=== PATIENT | female | born 1950 | race Caucasian/White ===

== ENCOUNTER 2020-07-08 09:39 | Outpatient (REF) | payer OTHER, SELFPAY ==
--- NOTE | ~2020-07-08 | MM_ITS ---
EXAMINATION: MM SCREENING DIGITAL BREAST TOMOSYNTHESIS, BILATERAL CLINICAL INFORMATION: Screening. Asymptomatic. The lifetime risk of breast cancer based on the Tyrer-Cuzick Model is 6%. COMPARISON: Mammography: 06/13/2019, and multiple exams dating back to 03/16/2012 TECHNIQUE: Digital breast tomosynthesis is performed in both the craniocaudal and mediolateral oblique views along with computer-aided detection (CAD). Synthesized 2D images are generated from the tomosynthesis. FINDINGS: There are scattered areas of fibroglandular density (ACR BI-RADS breast composition Category b). Parenchymal pattern is similar to prior exams. There is no interval mass or architectural abnormality. No developing density. Again, there is small stable nodular asymmetry posterior 8:00 right breast similar to prior studies dating back to 2011. The axilla and skin contours are unremarkable. MM/MM tomosynthesis screening BI IMPRESSION: No significant changes from prior studies. ASSESSMENT: BI-RADS 2: Benign RECOMMENDATION: Routine annual mammography screening. This patient's information was entered into a reminder system with a target due date for their next mammogram.
== END 2020-07-08 09:40 | disposition home or self-care (01) ==
LOC: HO.MAMMO 09:39
PROVIDERS: PCP Internal Medicine; Visit Provider Internal Medicine
DX: Z12.31 Encounter for screening mammogram for malignant neoplasm of breast (principal)
CPT/HCPCS: 77063; 77067

== ENCOUNTER 2020-08-26 08:08 | Emergency (ER) | payer OTHER, SELFPAY ==
--- NOTE | ~2020-08-26 | CT_ITS ---
EXAMINATION: CT ABDOMEN AND PELVIS WITH CONTRAST CLINICAL INFORMATION: Epigastric pain. COMPARISON: None TECHNIQUE: Multidetector volumetric images were obtained from the superior aspect of the liver through the pubic symphysis following administration 85 mL of Omnipaque 350 intravenous contrast. Sagittal and coronal reformatted images were obtained on the technologist's workstation. Oral contrast: No This CT examination was performed using dose optimization techniques as appropriate, variously including the following: *Automated exposure control *Adjustment of mA and/or kV according to patient size (this includes techniques or standardized protocols for targeted exams where dose is matched to indication/reason for exam; i.e. extremities or head) *Use of iterative reconstruction technique DLP: 495 mGy-cm FINDINGS: LUNG BASES: The lung bases are clear. The heart size is normal. LIVER, GALLBLADDER, AND BILIARY TREE: The liver is normal in size, shape, and attenuation. No focal hepatic lesion or biliary ductal dilatation is present. The gallbladder is unremarkable with no evidence of radiopaque gallstones, gallbladder wall thickening, or obvious pericholecystic inflammatory changes. PANCREAS: Unremarkable. SPLEEN: Unremarkable. ADRENAL GLANDS: Unremarkable. KIDNEYS AND URETERS: The kidneys are normal in size, shape, and attenuation. No hydronephrosis, hydroureter, or calculi seen. No perinephric stranding. BLADDER: Unremarkable. GASTROINTESTINAL TRACT: The small and large bowel are unremarkable. Suspect appendicolith in the right pelvis with a low-lying cecum in the appendix ABDOMINAL WALL: Small umbilical hernia containing fat. LYMPH NODES: Normal. VASCULAR: Unremarkable. PELVIC VISCERA: The uterus is retroverted and appears unremarkable. The ovaries are unremarkable. OSSEOUS STRUCTURES: Unremarkable. CT/CT abdomen pelvis w con IMPRESSION: No acute intra-abdominal process seen. Mild constipation. Likely appendicolith in the right lobe pelvis.
[2020-08-26 08:37] VITALS: BP 116/52; PULSE 80; RESP 18; TEMP 36.8; O2SAT 99; BMI 26.4
--- NOTE | 2020-08-26 08:49 | ECG_ITS ---
Test Reason : AD PAIN Blood Pressure : / mmHG Vent. Rate : 075 BPM Atrial Rate : 075 BPM P-R Int : 154 ms QRS Dur : 066 ms QT Int : 392 ms P-R-T Axes : 039 059 049 degrees QTc Int : 437 ms Normal sinus rhythm Normal ECG No previous ECGs available Referred By: Monica Moreno Electronically Signed By:Adolfo Rodriguez
--- NOTE | 2020-08-26 08:50 | ED_ITS ---
HPI - Abdominal Pain General Chief Complaint: Abdominal Pain Stated Complaint: abd cramps Time Seen by Provider: 08/26/20 08:18 Source: patient Mode of arrival: ambulatory Limitations: no limitations History of Present Illness HPI narrative: Comes to emergency room complaining of epigastric pain and right lower quadrant pain. Patient states the pain woke her from her sleep around 01:00 this morning. Patient states she went to sleep with no pain. Patient reports 3 bowel movements with loose stool since 01:00. Patient states that the patient called her PCP this morning, she was instructed to come to the emergency room. At this time, patient is dull, epigastric, 5/5. Discomfort is constant, nonradiating. Patient denies chest pain, no shortness of breath MD elicited complaint: abdominal pain Related Data Previous Rx's Medication Instructions Recorded levofloxacin 500 mg PO DAILY #7 tab 08/26/20 metronidazole [Flagyl] 500 mg PO BID #14 tab 08/26/20 tramadol 50 mg PO BID PRN #10 tab 08/26/20 Allergies Allergy/AdvReac Type Severity Reaction Status Date / Time amoxicillin Allergy Intermediate Hives Verified 08/26/20 08:47 Review of Systems Review of Systems Constitutional : No Weight loss, No Fever, No Chills, No Night Sweats, No Fatigue, No Malaise ENT/Mouth : No Hearing loss, No Ear Pain, No Nasal Congestion, No Sinus Pain, No Hoarseness, No sore throat, No Rhinorrhea, No Swallowing Difficulty Eyes: No Eye Pain, No Swelling, No Redness, No Foreign Body, No Discharge, No Vision Changes Cardiovascular : No Chest Pain, No SOB, No Dyspnea on Exertion, No Orthopnea, No Edema, No Palpitations Respiratory : No Cough, No Sputum, No Wheezing, No Smoke Exposure, No Dyspnea Gastrointestinal : Complaining of mild nausea, no vomiting, 3 episodes of loose stools, epigastric pain, no hematemesis or melena. Genitourinary : no irregular bleeding, No Dysuria, No Urinary Frequency, No Hematuria, No Urinary Incontinence, No Urgency, No Flank Pain, No Urinary Flow Changes, No Hesitancy Musculoskeletal : No joint pain, No Myalgias, No Joint Swelling Skin : No Skin Lesions, No rash Neuro : No Weakness, No Numbness, No Paresthesias, No Loss of Consciousness, No Dizziness, No Headache Psych : No Anxiety/Panic, No Depression, No SI/HI/AH/VH, No Social Issues, Heme/Lymph: No Bruising, No Bleeding,No Lymphadenopathy Endocrine : No Polyuria, No Polydipsia, No Temperature Intolerance Physical Exam Vital Signs: Vital Signs: Last Vital Signs Temp 97.8 F 08/26/20 10:35 Pulse 86 08/26/20 14:00 Resp 18 08/26/20 14:00 BP 102/66 08/26/20 14:00 Pulse Ox 96 08/26/20 14:00 Body Mass Index 26.4 Appearance: Alert. Oriented X3. No acute distress. Eyes: Pupils equal, round and reactive to light. ENT: Pharynx normal. Neck: Normal inspection. Neck supple. No lymph nodes noted. No crepitus CVS: Normal heart rate and rhythm. Pulses normal. Normal S1 and S2 Respiratory: No respiratory distress. Breath sounds normal. No Wheezing. No rales Abdomen: Soft , mild discomfort to deep palpation over the epigastric area, negative Hyde sign, No rigidity. No distention. Into palpation over the right lower quadrant, no peritoneal signs Skin: Skin warm and dry. Normal skin color. Normal skin turgor. Extremities: No lower extremity edema. No lower extremity edema. No Lacerations. No Rash Neuro: Oriented X 3. No motor deficit. No sensory deficit. Moving all extermities. No slurred speech. Course Course Course Narrative: I discussed the labs and CT scan with the patient, although she had 3 small loose bowel movements this morning, patient states that she feels distended, constipated. I discussed with the patient that we will go ahead and try an enema. Patient states she had a bowel movement after the enema. However, patient states that the pressure in her abdomen improved, but she still feels like she got punched in the right lower quadrant I discussed the patient with Dr. Cooper, who will be coming to evaluate the patient. Dr. Cooper evaluated the patient in the ED. Patient will be started on p.o. antibiotics and will be discharged home. Patient was instructed that if she feels any worsening abdominal pain, any new symptoms, she needs to return to the emergency room. Patient was instructed to schedule an appointment with Dr. Cooper for follow-up. Patient agrees with plan MDM - Abdominal Pain Lab Data Result diagrams: 08/26/20 09:16 08/26/20 09:53 Labs: Lab Results 08/26/20 08/26/20 Range/Units 09:16 09:53 WBC 10.6 (4.8-10.8) X10*3/uL RBC 4.41 (4.20-5.50) X10*6/uL Hgb 13.6 (12.0-16.0) g/dl Hct 41.6 (37-47) % MCV 94.3 (80-98) fL MCH 30.8 (27.0-33.0) pg MCHC 32.7 (31.0-35.0) g/dl RDW 12.9 (11.0-16.0) % Plt Count 233 (160-400) X10*3/uL MPV 9.7 (9.4-12.3) fL Immature Gran % (Auto) 0.4 (0.0-0.4) % Neut % (Auto) 80.8 H (45-73) % Lymph % (Auto) 12.4 L (20-40) % Bulloch % (Auto) 5.3 (2-11) % Eos % (Auto) 0.8 (0-4) % Baso % (Auto) 0.3 (0-2) % Lymph # (Auto) 1.3 (1.2-4.9) X10*3/uL Bulloch # (Auto) 0.6 (0.1-1.2) X10*3/uL Eos # (Auto) 0.1 (0.0-0.4) X10*3/uL Baso # (Auto) 0.0 (0.0-0.2) X10*3/uL Abs Immat Gran (auto) 0.04 H (0.00-0.03) X10*3/uL Absolute Neuts (auto) 8.5 H (2.0-8.3) X10*3/uL Absolute Nucleated RBC 0.000 (0.0-0.012) X10*3/uL Nucleated RBC % (auto) 0.0 (0.0-0.2) /100WBC Sodium 141 (135-145) mmol/L Potassium 4.3 (3.3-5.1) mmol/L Chloride 105 (96-108) mmol/L Carbon Dioxide 26 (22-29) mmol/L Anion Gap 14 (12-20) BUN 14 (9-16) mg/dL Creatinine 0.55 (0.5-1.4) mg/dL Estim Creat Clear Calc 82.4 Estimated GFR > 60 Random Glucose 104 (60-115) mg/dL Calcium 8.4 (8.4-10.2) mg/dL Total Bilirubin 0.6 (0.0-1.0) mg/dL Direct Bilirubin 0.3 (0.0-0.5) mg/dL AST 27 (5-31) U/L ALT 31 (0-31) U/L Alkaline Phosphatase 72 (39-117) U/L Total Protein 6.5 (6.5-8.0) g/dL Albumin 3.9 (3.5-5.0) g/dL Lipase 8 (8-78) U/L Imaging Data CT scan - abdomen: Radiologist's impression: LUNG BASES: The lung bases are clear. The heart size is normal. LIVER, GALLBLADDER, AND BILIARY TREE: The liver is normal in size, shape, and attenuation. No focal hepatic lesion or biliary ductal dilatation is present. The gallbladder is unremarkable with no evidence of radiopaque gallstones, gallbladder wall thickening, or obvious pericholecystic inflammatory changes. PANCREAS: Unremarkable. SPLEEN: Unremarkable. ADRENAL GLANDS: Unremarkable. KIDNEYS AND URETERS: The kidneys are normal in size, shape, and attenuation. No hydronephrosis, hydroureter, or calculi seen. No perinephric stranding. BLADDER: Unremarkable. GASTROINTESTINAL TRACT: The small and large bowel are unremarkable. Suspect appendicolith in the right pelvis with a low-lying cecum in the appendix ABDOMINAL WALL: Small umbilical hernia containing fat. LYMPH NODES: Normal. VASCULAR: Unremarkable. PELVIC VISCERA: The uterus is retroverted and appears unremarkable. The ovaries are unremarkable. OSSEOUS STRUCTURES: Unremarkable. CT/CT abdomen pelvis w con IMPRESSION: No acute intra-abdominal process seen. Mild constipation. Likely appendicolith in the right lobe pelvis. ECG Data Attestation: I personally reviewed and interpreted this ECG as follows: (Normal sinus rhythm, heart rate 75, no ST segment depression or elevation, nonspecific T-wave inversion in lead V2) Discharge Plan Discharge Clinical Impression: Abdominal pain Qualifiers: Abdominal location: unspecified location Qualified Code(s): R10.9 - Unspecified abdominal pain Patient Disposition: Home, Self-Care Instructions: Abdominal Pain (ED) Additional Instructions: If you have any worsening abdominal pain or any new symptoms, please return to the emergency room. Your symptoms may be an early sign of appendicitis. Please call Dr. Cooper office to schedule a follow-up appointment, ideally before you travel to [place]. Please follow-up with your primary care physician tomorrow. If you have any worsening or new symptoms, please return to the emergency room or call 911 Prescriptions: New levofloxacin 500 mg tablet 500 mg PO DAILY Qty: 7 RF: 0 metronidazole [Flagyl] 500 mg tablet 500 mg PO BID Qty: 14 RF: 0 tramadol 50 mg tablet 50 mg PO BID PRN (Reason: pain) Qty: 10 RF: 0 Referrals: Shaan Cooper MD [Physician] - [facility] Social History Social History Advance Directives: No Advance Directives Information Provided: No
[2020-08-26 09:20] LABS: MANUAL DIFF FLAG NO
[2020-08-26 09:23] LABS: Basophils Percent Auto 0.3 % (0-2); Eosinophils Absolute Auto 0.1 X10*3/uL (0.0-0.4); Eosinophils Percent Auto 0.8 % (0-4); Hematocrit 41.6 % (37-47); Hemoglobin 13.6 g/dl (12.0-16.0); Imm Gran Abs Auto 0.04 X10*3/uL (0.00-0.03); Imm Gran Pct Auto 0.4 % (0.0-0.4); Lymphocytes Absolute Auto 1.3 X10*3/uL (1.2-4.9); Lymphocytes Percent Auto 12.4 % (20-40); Mean Corpuscular HGB Conc 32.7 g/dl (31.0-35.0); Mean Corpuscular Hemoglobin 30.8 pg (27.0-33.0); Mean Corpuscular Volume 94.3 fL (80-98); Mean Platelet Volume 9.7 fL (9.4-12.3); Monocytes Absolute Auto 0.6 X10*3/uL (0.1-1.2); Monocytes Percent Auto 5.3 % (2-11); Neutrophils Absolute Auto 8.5 X10*3/uL (2.0-8.3); Neutrophils Percent Auto 80.8 % (45-73); Platelet Count 233 X10*3/uL (160-400); Red Blood Count 4.41 X10*6/uL (4.20-5.50); Red Cell Distribution Width 12.9 % (11.0-16.0); White Blood Count 10.6 X10*3/uL (4.8-10.8)
[2020-08-26] MEDS: 0.9 % Sodium Chloride 1,000 ML 999 ML IVCONT (09:24)
[2020-08-26 10:24] LABS: Alanine Aminotransferase 31 U/L (0-31); Albumin Level 3.9 g/dL (3.5-5.0); Alkaline Phosphatase 72 U/L (39-117); Anion Gap 14 (12-20); Aspartate Amino Transferase 27 U/L (5-31); Bilirubin Direct 0.3 mg/dL (0.0-0.5); Bilirubin Total 0.6 mg/dL (0.0-1.0); Blood Urea Nitrogen 14 mg/dL (9-16); Calcium 8.4 mg/dL (8.4-10.2); Carbon Dioxide 26 mmol/L (22-29); Chloride 105 mmol/L (96-108); Creatinine Clr Calc Pharmacy 82.4; Estimated Glomerular Filt Rate > 60; Glucose Random 104 mg/dL (60-115); Lipase 8 U/L (8-78); Potassium 4.3 mmol/L (3.3-5.1); Sodium 141 mmol/L (135-145); Total Protein 6.5 g/dL (6.5-8.0)
--- NOTE | 2020-08-26 10:32 | PC.NURSE ---
Patient heading to CT scan
[2020-08-26 10:35] VITALS: BP 133/70; PULSE 87; RESP 16; TEMP 36.6; O2SAT 98
[2020-08-26] MEDS: iohexoL 350 MG/ML 75 ML INFUS..BTL IV (11:07)
[2020-08-26 12:00] VITALS: BP 133/70; PULSE 87; O2SAT 98
[2020-08-26] MEDS: Sodium Phosphate,Mono-Dibasic 133 ML ENEMA PR (13:57)
[2020-08-26 14:00] VITALS: BP 102/66; PULSE 86; RESP 18; O2SAT 96
--- NOTE | 2020-08-26 15:45 | PM.CNGS ---
History of Present Illness Consult details Consult date: 08/26/20 Narrative: 70-year-old female patient presenting to the emergency department for evaluation of abdominal pain which began at approximately 01:00 this morning, waking her up from sleep. The pain was initially in the epigastric region then felt in they bilateral lower abdomen. She felt that she was constipated and has subsequently had 3 bowel movements which did improve the pain to some degree but however she still feels some discomfort in the lower abdomen. She denied fever or chills, nausea, vomiting, or anorexia. She denies pain with motion/walking. She denies a previous history of similar discomfort. She subsequently presented to the emergency department and underwent evaluation for acute appendicitis. WBC was normal. CT of the abdomen revealed a fecalith at the appendix however no evidence of appendix swelling or inflammation to indicate acute appendicitis. She is planning a trip to [place], [place] in approximately 5 days. Review of Systems Constitutional: Constitutional: Denies chills, Denies fever(s), Denies headache(s) and Denies poor appetite ENT: Denies dizziness and Denies headache(s) Cardiovascular: Cardiovascular: Denies chest pain, Denies rapid heart rate, Denies palpitations and Denies slow heart rate Respiratory: Respiratory: Denies chest congestion, Denies cough, Denies pain on inspiration and Denies wheezing Gastrointestinal: Gastrointestinal: Reports abdominal pain, Denies bloating, Denies change in stool character, Reports constipation, Denies diarrhea, Denies nausea, Denies vomiting and Denies hematemesis Musculoskeletal: Musculoskeletal: Denies back pain, Denies arthralgias, Denies joint swelling and Denies numbness Integumentary/Breasts: Skin/Breast: Denies change in pigmentation, Denies erythema and Denies rash Neurologic: Denies dizziness, Denies headache(s) and Denies numbness Psychiatric: Psychiatric: Denies anxiety and Denies depression Endocrine: Endocrine: Denies palpitations Hematologic/Lymphatic: Hematologic/Lymphatic: Denies easy bleeding, Denies easy bruising and Denies lymphadenopathy Allergic/Immunologic: Allergic/Immunologic: Denies wheezing PMFSH Social History Social History Advance Directives: No Advance Directives Information Provided: No Meds Allergies Allergy/AdvReac Type Severity Reaction Status Date / Time amoxicillin Allergy Intermediate Hives Verified 08/26/20 08:47 Physical Exam Vital Signs: Vital Signs: Last Vital Signs Temp 97.8 F 08/26/20 10:35 Pulse 86 08/26/20 14:00 Resp 18 08/26/20 14:00 BP 102/66 08/26/20 14:00 Pulse Ox 96 08/26/20 14:00 Body Mass Index 26.4 Const: General: cooperative, comfortable, no acute distress, well developed, alert, awake and Physically active Eyes: Sclerae: sclerae normal EOM: EOMs intact bilaterally Resp: Effort & Inspection: normal respiratory effort, not labored, no stridor and not tachypneic Auscultation: no wheezes Cardio: Jugular venous distension: no JVD Rate: regular rate Rhythm: regular rhythm GI: Inspection: Yes normal to inspection and No distended Palpation (GI): Soft to palpation and Tenderness to palpation present (GI) in the LLQ and in the RLQ; obturator sign negative, psoas sign negative and with no rebound tenderness Percussion: Yes normal to percussion Auscultation: normal bowel sounds Skin: General skin exam: no rashes or lesions noted and dry skin Extrem: General: Yes no clubbing, cyanosis or edema Results Labs Result diagrams: 08/26/20 09:16 08/26/20 09:53 Labs: Abnormal lab results 08/26/20 Range/Units 09:16 Neut % (Auto) 80.8 H (45-73) % Lymph % (Auto) 12.4 L (20-40) % Abs Immat Gran (auto) 0.04 H (0.00-0.03) X10*3/uL Absolute Neuts (auto) 8.5 H (2.0-8.3) X10*3/uL Short CBC 08/26/20 Range/Units 09:16 WBC 10.6 (4.8-10.8) X10*3/uL Hgb 13.6 (12.0-16.0) g/dl Hct 41.6 (37-47) % Plt Count 233 (160-400) X10*3/uL BMP 08/26/20 09:53 Sodium 141 Potassium 4.3 Chloride 105 Carbon Dioxide 26 BUN 14 Creatinine 0.55 Calcium 8.4 Liver Function 08/26/20 Range/Units 09:53 Total Bilirubin 0.6 (0.0-1.0) mg/dL Direct Bilirubin 0.3 (0.0-0.5) mg/dL AST 27 (5-31) U/L ALT 31 (0-31) U/L Alkaline Phosphatase 72 (39-117) U/L Albumin 3.9 (3.5-5.0) g/dL All other labs normal. Assessment and Plan (1) Abdominal pain: Qualifiers: Abdominal location: unspecified location Qualified Code(s): R10.9 - Unspecified abdominal pain Status: Acute Patient presents with complaints of abdominal pain in the lower abdomen without fever, chills, nausea, vomiting, or anorexia. Workup revealed a normal WBC and CT of the abdomen reveals a fecalith associated with the appendix. The patient also reports a constipation which is improved after an enema provided in the emergency department. Symptoms may be related to the appendix although there are no other secondary signs of appendicitis. I would recommend start her on oral antibiotics at with follow-up in the office in the next several days to assess her symptoms. If her symptoms do not improve 1 option would be elective laparoscopic appendectomy. Patient expressed understanding and agrees with the plan.
[2020-08-26] MEDS: levoFLOXacin 500 MG TABLET PO (15:52)
[2020-08-26] MEDS: metroNIDAZOLE 500 MG TABLET PO (15:53)
== END 2020-08-26 16:02 | disposition home or self-care (01) ==
PROVIDERS: Emergency Provider Emergency Medicine; PCP Internal Medicine
DX: R10.31 Right lower quadrant pain (principal); R10.13 Epigastric pain; Z79.899 Other long term (current) drug therapy
CPT/HCPCS: 36415; 74177; 80048; 80076; 83690; 85025; 93005; 96361; 96365; 96375; 99283; 99284; Q9967

== ENCOUNTER 2020-08-28 15:14 | Inpatient (IN) | payer OTHER, SELFPAY ==
--- NOTE | ~2020-08-28 | CT_ITS ---
EXAMINATION: CT ABDOMEN AND PELVIS WITH CONTRAST CLINICAL INFORMATION: Worsening pain since prior study. An appendicolith was seen at that time. COMPARISON: CT scan from a few days ago on 08/26/2020 TECHNIQUE: Multidetector volumetric images were obtained from the superior aspect of the liver through the pubic symphysis following administration 85 mL of Omnipaque 350 intravenous contrast. Sagittal and coronal reformatted images were obtained on the technologist's workstation. Oral contrast: No This CT examination was performed using dose optimization techniques as appropriate, variously including the following: *Automated exposure control *Adjustment of mA and/or kV according to patient size (this includes techniques or standardized protocols for targeted exams where dose is matched to indication/reason for exam; i.e. extremities or head) *Use of iterative reconstruction technique DLP: 526 mGy-cm FINDINGS: LUNG BASES: The visualized lung bases are unremarkable. A tiny pericardial effusion is unchanged. LIVER, GALLBLADDER, AND BILIARY TREE: The liver is normal in size, shape, and attenuation. No focal hepatic lesion or biliary ductal dilatation is present. The gallbladder is unremarkable with no evidence of radiopaque gallstones, gallbladder wall thickening, or obvious pericholecystic inflammatory changes. PANCREAS: Unremarkable. SPLEEN: Unremarkable. ADRENAL GLANDS: Unremarkable. KIDNEYS AND URETERS: The kidneys are normal in size, shape, and attenuation. No hydronephrosis, hydroureter, or calculi seen. No perinephric stranding. BLADDER: Unremarkable. GASTROINTESTINAL TRACT: The small and large bowel are unremarkable. The appendix is now an equivocally dilated with an appendicolith proximally causing obstruction. The diameter of the appendix is 12 mm. Inflammatory changes are present in the surrounding fat and there is a small fluid collection dependent portion of the pelvis on the right adjacent to the appendix. No extraluminal air is seen.. ABDOMINAL WALL: No significant hernia is appreciated. LYMPH NODES: Normal. VASCULAR: Unremarkable. PELVIC VISCERA: Again noted is a retroverted uterus. OSSEOUS STRUCTURES: Unremarkable. CT/CT abdomen pelvis w con IMPRESSION: Acute appendicitis with dilated 12 mm appendix with surrounding inflammatory changes within obstructing appendicolith and fluid collection in the pelvis. No extraluminal air is seen. This critical result was discussed with Dr. Moreno at 7:15 PM on the day of the exam and it was ascertained that the content and urgency of the report was understood at the time of direct communication.
[2020-08-28 15:21] VITALS: BP 115/58; PULSE 93; RESP 19; TEMP 37.4; O2SAT 95; BMI 26.4
--- NOTE | 2020-08-28 17:19 | ED.ABDPAIN ---
HPI - Abdominal Pain General Chief Complaint: Abdominal Pain Stated Complaint: ABD PAIN Time Seen by Provider: 08/28/20 17:11 Source: patient Mode of arrival: ambulatory Limitations: no limitations History of Present Illness HPI narrative: Patient comes emergency room complaining of worsening abdominal pain. It has been almost 4 days since the patient has had abdominal pain. Patient was seen 2 days ago here in the emergency room for the same complaint, CT scan showed an appendicolith with no signs of acute appendicitis. Prior to her discharge, patient was evaluated by Dr. Cooper and by myself. Patient was informed that although she had no acute findings of appendicitis, she could be developing early signs of appendicitis and was instructed to return to the emergency room if she had any ongoing or worsening symptoms. Patient was also informed that if her symptoms do not improve, elective laparoscopic appendectomy is an option. Patient agreed to be discharged home, she has been taking Flagyl and levofloxacin, states she has been compliant. Patient has been having diarrhea for the last 2 days. No nausea or vomiting, no fever chills. MD elicited complaint: abdominal pain Related Data Previous Rx's Medication Instructions Recorded levofloxacin 500 mg PO DAILY #7 tab 08/26/20 levofloxacin 500 mg PO DAILY #7 tab 08/26/20 metronidazole [Flagyl] 500 mg PO BID #14 tab 08/26/20 metronidazole [Flagyl] 500 mg PO Q12H #14 tab 08/26/20 tramadol 50 mg PO BID PRN #10 tab 08/26/20 tramadol 50 mg PO BID PRN #10 tab 08/26/20 Allergies Allergy/AdvReac Type Severity Reaction Status Date / Time amoxicillin Allergy Intermediate Hives Verified 08/26/20 08:47 Review of Systems Review of Systems Constitutional : No Weight loss, No Fever, No Chills, No Night Sweats, No Fatigue, No Malaise ENT/Mouth : No Hearing loss, No Ear Pain, No Nasal Congestion, No Sinus Pain, No Hoarseness, No sore throat, No Rhinorrhea, No Swallowing Difficulty Eyes: No Eye Pain, No Swelling, No Redness, No Foreign Body, No Discharge, No Vision Changes Cardiovascular : No Chest Pain, No SOB, No Dyspnea on Exertion, No Orthopnea, No Edema, No Palpitations Respiratory : No Cough, No Sputum, No Wheezing, No Smoke Exposure, No Dyspnea Gastrointestinal : No Nausea, No Vomiting, complaining of diarrhea, no constipation, complaining of right lower quadrant pain Genitourinary : no irregular bleeding, No Dysuria, No Urinary Frequency, No Hematuria, No Urinary Incontinence, No Urgency, No Flank Pain, No Urinary Flow Changes, No Hesitancy Musculoskeletal : No joint pain, No Myalgias, No Joint Swelling Skin : No Skin Lesions, No rash Neuro : No Weakness, No Numbness, No Paresthesias, No Loss of Consciousness, No Dizziness, No Headache Psych : No Anxiety/Panic, No Depression, No SI/HI/AH/VH, No Social Issues, Heme/Lymph: No Bruising, No Bleeding,No Lymphadenopathy Endocrine : No Polyuria, No Polydipsia, No Temperature Intolerance Physical Exam Vital Signs: Vital Signs: Last Vital Signs Temp 98.1 F 08/28/20 18:00 Pulse 91 08/28/20 18:00 Resp 18 08/28/20 18:01 BP 124/77 08/28/20 18:00 Pulse Ox 99 08/28/20 18:00 Body Mass Index 26.4 Appearance: Alert. Oriented X3. No acute distress. Eyes: Pupils equal, round and reactive to light. ENT: Pharynx normal. Neck: Normal inspection. Neck supple. No lymph nodes noted. No crepitus CVS: Normal heart rate and rhythm. Pulses normal. Normal S1 and S2 Respiratory: No respiratory distress. Breath sounds normal. No Wheezing. No rales Abdomen: Soft , tender to palpation worse in bilateral lower quadrants, more tender on the right lower quadrant, positive rebound, no guarding, negative Hyde sign Skin: Skin warm and dry. Normal skin color. Normal skin turgor. Extremities: No lower extremity edema. No lower extremity edema. No Lacerations. No Rash Neuro: Oriented X 3. No motor deficit. No sensory deficit. Moving all extermities. No slurred speech. Course Course Course Narrative: Patient has acute appendicitis without perforation. Sepsis is not suspected. I discussed the patient with Dr. Cooper. Patient will be going to the OR tomorrow MDM - Abdominal Pain Lab Data Result diagrams: 08/28/20 17:55 08/28/20 17:55 Labs: Lab Results 08/28/20 08/28/20 08/28/20 Range/Units 17:55 17:55 17:55 WBC 15.4 H (4.8-10.8) X10*3/uL RBC 4.08 L (4.20-5.50) X10*6/uL Hgb 12.4 (12.0-16.0) g/dl Hct 38.2 (37-47) % MCV 93.6 (80-98) fL MCH 30.4 (27.0-33.0) pg MCHC 32.5 (31.0-35.0) g/dl RDW 13.1 (11.0-16.0) % Plt Count 189 (160-400) X10*3/uL MPV 9.9 (9.4-12.3) fL Immature Gran % (Auto) 0.5 H (0.0-0.4) % Neut % (Auto) 83.1 H (45-73) % Lymph % (Auto) 9.8 L (20-40) % [place] % (Auto) 6.2 (2-11) % Eos % (Auto) 0.2 (0-4) % Baso % (Auto) 0.2 (0-2) % Lymph # (Auto) 1.5 (1.2-4.9) X10*3/uL [place] # (Auto) 1.0 (0.1-1.2) X10*3/uL Eos # (Auto) 0.0 (0.0-0.4) X10*3/uL Baso # (Auto) 0.0 (0.0-0.2) X10*3/uL Abs Immat Gran (auto) 0.07 H (0.00-0.03) X10*3/uL Absolute Neuts (auto) 12.8 H (2.0-8.3) X10*3/uL Absolute Nucleated RBC 0.000 (0.0-0.012) X10*3/uL Nucleated RBC % (auto) 0.0 (0.0-0.2) /100WBC Sodium 137 (135-145) mmol/L Potassium 3.6 (3.3-5.1) mmol/L Chloride 99 (96-108) mmol/L Carbon Dioxide 30 H (22-29) mmol/L Anion Gap 12 (12-20) BUN 10 (9-16) mg/dL Creatinine 0.59 (0.5-1.4) mg/dL Estim Creat Clear Calc 76.8 Estimated GFR > 60 Random Glucose 95 (60-115) mg/dL Lactic Acid 0.9 (0.5-2.0) mmol/L Calcium 8.6 (8.4-10.2) mg/dL Total Bilirubin 0.7 (0.0-1.0) mg/dL Direct Bilirubin 0.4 (0.0-0.5) mg/dL AST 54 H (5-31) U/L ALT 56 H (0-31) U/L Alkaline Phosphatase 82 (39-117) U/L Total Protein 6.6 (6.5-8.0) g/dL Albumin 3.7 (3.5-5.0) g/dL Lipase < 4 L (8-78) U/L Urine Color Urine Appearance Urine pH (5.0-8.0) Ur Specific [place] (1.005-1.025) Urine Protein (NEG-TRACE) MG/DL Urine Glucose (UA) (NEG) MG/DL Urine Ketones (NEG) MG/DL Urine Blood (NEG) Urine Nitrite (NEG) Ur Leukocyte Esterase (NEG) 08/28/20 Range/Units 19:26 WBC (4.8-10.8) X10*3/uL RBC (4.20-5.50) X10*6/uL Hgb (12.0-16.0) g/dl Hct (37-47) % MCV (80-98) fL MCH (27.0-33.0) pg MCHC (31.0-35.0) g/dl RDW (11.0-16.0) % Plt Count (160-400) X10*3/uL MPV (9.4-12.3) fL Immature Gran % (Auto) (0.0-0.4) % Neut % (Auto) (45-73) % Lymph % (Auto) (20-40) % [place] % (Auto) (2-11) % Eos % (Auto) (0-4) % Baso % (Auto) (0-2) % Lymph # (Auto) (1.2-4.9) X10*3/uL [place] # (Auto) (0.1-1.2) X10*3/uL Eos # (Auto) (0.0-0.4) X10*3/uL Baso # (Auto) (0.0-0.2) X10*3/uL Abs Immat Gran (auto) (0.00-0.03) X10*3/uL Absolute Neuts (auto) (2.0-8.3) X10*3/uL Absolute Nucleated RBC (0.0-0.012) X10*3/uL Nucleated RBC % (auto) (0.0-0.2) /100WBC Sodium (135-145) mmol/L Potassium (3.3-5.1) mmol/L Chloride (96-108) mmol/L Carbon Dioxide (22-29) mmol/L Anion Gap (12-20) BUN (9-16) mg/dL Creatinine (0.5-1.4) mg/dL Estim Creat Clear Calc Estimated GFR Random Glucose (60-115) mg/dL Lactic Acid (0.5-2.0) mmol/L Calcium (8.4-10.2) mg/dL Total Bilirubin (0.0-1.0) mg/dL Direct Bilirubin (0.0-0.5) mg/dL AST (5-31) U/L ALT (0-31) U/L Alkaline Phosphatase (39-117) U/L Total Protein (6.5-8.0) g/dL Albumin (3.5-5.0) g/dL Lipase (8-78) U/L Urine Color YELLOW Urine Appearance CLEAR Urine pH 6.5 (5.0-8.0) Ur Specific [place] <= 1.005 (1.005-1.025) Urine Protein NEG (NEG-TRACE) MG/DL Urine Glucose (UA) NEG (NEG) MG/DL Urine Ketones 15 (NEG) MG/DL Urine Blood TRACE (NEG) Urine Nitrite NEG (NEG) Ur Leukocyte Esterase NEG (NEG) Imaging Data CT scan - abdomen: Radiologist's impression: FINDINGS: LUNG BASES: The visualized lung bases are unremarkable. A tiny pericardial effusion is unchanged. LIVER, GALLBLADDER, AND BILIARY TREE: The liver is normal in size, shape, and attenuation. No focal hepatic lesion or biliary ductal dilatation is present. The gallbladder is unremarkable with no evidence of radiopaque gallstones, gallbladder wall thickening, or obvious pericholecystic inflammatory changes. PANCREAS: Unremarkable. SPLEEN: Unremarkable. ADRENAL GLANDS: Unremarkable. KIDNEYS AND URETERS: The kidneys are normal in size, shape, and attenuation. No hydronephrosis, hydroureter, or calculi seen. No perinephric stranding. BLADDER: Unremarkable. GASTROINTESTINAL TRACT: The small and large bowel are unremarkable. The appendix is now an equivocally dilated with an appendicolith proximally causing obstruction. The diameter of the appendix is 12 mm. Inflammatory changes are present in the surrounding fat and there is a small fluid collection dependent portion of the pelvis on the right adjacent to the appendix. No extraluminal air is seen.. ABDOMINAL WALL: No significant hernia is appreciated. LYMPH NODES: Normal. VASCULAR: Unremarkable. PELVIC VISCERA: Again noted is a retroverted uterus. OSSEOUS STRUCTURES: Unremarkable. CT/CT abdomen pelvis w con IMPRESSION: Acute appendicitis with dilated 12 mm appendix with surrounding inflammatory changes within obstructing appendicolith and fluid collection in the pelvis. No extraluminal air is seen. ECG Data Attestation: I personally reviewed and interpreted this ECG as follows: (Sinus rhythm, heart rate 88, no ST segment depression or elevation, no T-wave inversion) Discharge Plan Discharge Clinical Impression: Acute appendicitis Qualifiers: Acute appendicitis type: with localized peritonitis Appendicitis gangrene presence: without gangrene Appendicitis perforation presence: without perforation Appendicitis abscess presence: without abscess Qualified Code(s): K35.30 - Acute appendicitis with localized peritonitis, without perforation or gangrene Patient Disposition: Admitted As Inpatient FOR[facility]LY [facility] Past Medical History Medical History No active medical problems Social History Social History Advance Directives: No Advance Directives Information Provided: No
--- NOTE | 2020-08-28 17:20 | ECG_ITS ---
Test Reason : MEDICAL Blood Pressure : / mmHG Vent. Rate : 088 BPM Atrial Rate : 088 BPM P-R Int : 160 ms QRS Dur : 068 ms QT Int : 362 ms P-R-T Axes : 066 064 046 degrees QTc Int : 438 ms Normal sinus rhythm Normal ECG When compared with ECG of 26-AUG-2020 09:05, No significant change was found Referred By: Monica Moreno Electronically Signed By:PING VALDES MD
[2020-08-28 18:00] VITALS: BP 124/77; PULSE 91; RESP 16; TEMP 36.7; O2SAT 99
[2020-08-28 18:01] VITALS: RESP 18
[2020-08-28] MEDS: Metoclopramide HCl 10 MG/2 ML VIAL IVPUSH (18:01)
[2020-08-28] MEDS: Morphine Sulfate 4 MG/ML CARTRIDGE IVPUSH (18:01)
[2020-08-28] MEDS: 0.9 % Sodium Chloride 1,000 ML 999 ML IVCONT (18:01)
[2020-08-28 18:02] LABS: MANUAL DIFF FLAG NO
[2020-08-28 18:04] LABS: Basophils Percent Auto 0.2 % (0-2); Eosinophils Percent Auto 0.2 % (0-4); Hematocrit 38.2 % (37-47); Hemoglobin 12.4 g/dl (12.0-16.0); Imm Gran Abs Auto 0.07 X10*3/uL (0.00-0.03); Imm Gran Pct Auto 0.5 % (0.0-0.4); Lymphocytes Absolute Auto 1.5 X10*3/uL (1.2-4.9); Lymphocytes Percent Auto 9.8 % (20-40); Mean Corpuscular HGB Conc 32.5 g/dl (31.0-35.0); Mean Corpuscular Hemoglobin 30.4 pg (27.0-33.0); Mean Corpuscular Volume 93.6 fL (80-98); Mean Platelet Volume 9.9 fL (9.4-12.3); Monocytes Percent Auto 6.2 % (2-11); Neutrophils Absolute Auto 12.8 X10*3/uL (2.0-8.3); Neutrophils Percent Auto 83.1 % (45-73); Platelet Count 189 X10*3/uL (160-400); Red Blood Count 4.08 X10*6/uL (4.20-5.50); Red Cell Distribution Width 13.1 % (11.0-16.0); White Blood Count 15.4 X10*3/uL (4.8-10.8)
[2020-08-28 18:28] LABS: Lactic Acid 0.9 mmol/L (0.5-2.0)
[2020-08-28 18:36] LABS: Alanine Aminotransferase 56 U/L (0-31); Albumin Level 3.7 g/dL (3.5-5.0); Alkaline Phosphatase 82 U/L (39-117); Anion Gap 12 (12-20); Aspartate Amino Transferase 54 U/L (5-31); Bilirubin Direct 0.4 mg/dL (0.0-0.5); Bilirubin Total 0.7 mg/dL (0.0-1.0); Blood Urea Nitrogen 10 mg/dL (9-16); Calcium 8.6 mg/dL (8.4-10.2); Carbon Dioxide 30 mmol/L (22-29); Chloride 99 mmol/L (96-108); Creatinine Clr Calc Pharmacy 76.8; Estimated Glomerular Filt Rate > 60; Glucose Random 95 mg/dL (60-115); Lipase < 4 U/L (8-78); Potassium 3.6 mmol/L (3.3-5.1); Sodium 137 mmol/L (135-145); Total Protein 6.6 g/dL (6.5-8.0)
[2020-08-28 19:34] LABS: Glucose Urine UA NEG (NEG); Leukocyte Esterase Urine NEG (NEG); Nitrite Urine NEG (NEG); PH 6.5 (5.0-8.0); Specific Gravity - Urine <= 1.005 (1.005-1.025); Urine Blood TRACE (NEG); Urine Ketones 15 MG/DL (NEG); Urine Protein NEG (NEG-TRACE)
[2020-08-28 19:35] LABS: Appearance Urine CLEAR; Color Urine YELLOW
[2020-08-28] MEDS: levoFLOXacin/D5W 500 MG/100 ML PIGGYBACK 100 MG IV (19:36)
[2020-08-28 19:41] LABS: Bacteria Urine TRACE /LPF; RBC Urine 0-2 /HPF (0); Squamous Epithelial Cell Urine TRACE /LPF; WBC Urine 0 /HPF (0-4)
[2020-08-28 20:15] LABS: COVID-19 Test Negative (Negative); IDNOW Serial# 9DD0AD1C
[2020-08-28 21:02] VITALS: BP 128/65; PULSE 100; RESP 16; TEMP 37.2; O2SAT 96
[2020-08-28] MEDS: metroNIDAZOLE/NS 500 MG/100 ML PIGGYBACK 100 MG IV (21:47)
[2020-08-28 22:00] VITALS: BP 122/70; PULSE 89; RESP 16; TEMP 37.3; O2SAT 99
[2020-08-28] MEDS: Acetaminophen 325 MG TABLET 650 MG PO (22:28)
--- NOTE | 2020-08-28 22:33 | MHC.CM.PN ---
CM met with pt and . insurance-no IMM required. Pt does not use [facility] services. Pt spent 20 years in [employer]. Lives with . Has no services. Uses no medical equipment. D/C plan is home without services. to provide transportation. No HCP on file. CM to follow for d/c needs.
[2020-08-29] VITALS (18 sets, daily range): BP systolic 101–139; BP diastolic 38–81; PULSE 79–110; RESP 14–20; TEMP 35.8–37.8; O2SAT 94–99
[2020-08-29] MEDS: 0.9 % Sodium Chloride Flush 3 ML SYRINGE IVFLUSH ×3 (00:55→18:34)
[2020-08-29] MEDS: Dextrose 5 % and Lactated Ring 1,000 ML 125 ML IVCONT ×3 (00:55→18:27)
--- NOTE | 2020-08-29 01:11 | PC.NURSE ---
REPORT TAKEN FROM XIMENA LITTLE, FIRST CONTACT WITH PT, RESTING IN BED SKIN PWD RESPIRATIONS EVEN UNLABORED. REPORTS SWEATS YET AFEBRILE. VSS. IVF HUNG AND INFUSING WITHOUT DIFFICULTY. AWAITING BED ASSIGNMENT FOR ADMISSION.
[2020-08-29] MEDS: metroNIDAZOLE/NS 500 MG/100 ML PIGGYBACK 100 MG IV ×2 (05:31→16:03)
--- NOTE | 2020-08-29 05:59 | PM.HPGS ---
History of Present Illness History of Present Illness Date of Service: 08/29/20 Chief complaint: Acute appendicitis Narrative: Jigna Solorzano is a 70 year old female presenting with complaints of lower abdominal pain Review of Systems Constitutional: Constitutional: Denies chills, Denies fever(s), Denies headache(s) and Denies poor appetite ENT: Denies dizziness and Denies headache(s) Cardiovascular: Cardiovascular: Denies chest pain, Denies rapid heart rate, Denies palpitations and Denies slow heart rate Respiratory: Respiratory: Denies chest congestion, Denies cough, Denies pain on inspiration and Denies wheezing Gastrointestinal: Gastrointestinal: Reports abdominal pain, Denies bloating, Denies change in stool character, Reports constipation, Denies diarrhea, Denies nausea, Denies vomiting and Denies hematemesis Musculoskeletal: Musculoskeletal: Denies back pain, Denies arthralgias, Denies joint swelling and Denies numbness Integumentary/Breasts: Skin/Breast: Denies change in pigmentation, Denies erythema and Denies rash Neurologic: Denies dizziness, Denies headache(s) and Denies numbness Psychiatric: Psychiatric: Denies anxiety and Denies depression Endocrine: Endocrine: Denies palpitations Hematologic/Lymphatic: Hematologic/Lymphatic: Denies easy bleeding, Denies easy bruising and Denies lymphadenopathy Allergic/Immunologic: Allergic/Immunologic: Denies wheezing PMFSH Past Medical History Medical History (Updated 08/29/20 @ 11:21 by Coco Jones RN) Asthma Bunion of great toe of left foot Carpal tunnel syndrome of right wrist Cataract Social History Social History Alcohol intake: never Smoking Status: Never smoker Use of substances other than those prescribed or required for medical reasons: No Advance Directives: No Advance Directives Information Provided: No service: Yes Current occupational status: retired Meds Allergies Allergy/AdvReac Type Severity Reaction Status Date / Time amoxicillin Allergy Intermediate Hives Verified 08/26/20 08:47 Active Medications: Current Medications Generic Name Dose Route Start Last Admin Trade Name Freq PRN Reason Stop Dose Admin Acetaminophen 650 mg 08/28/20 22:24 08/28/20 22:28 Acetaminophen 325 Mg Tablet PO 650 mg Q6H PRN Administration Pain, Mild (Pain Scale 1-3) Dextrose/Lactated Ringer's 1,000 mls @ 125 mls/hr 08/28/20 22:24 08/29/20 00:55 D5lr IVCONT 125 mls/hr .Q8H THEODORE Administration Levofloxacin 500 mg in 100 mls @ 100 mls/hr 08/29/20 19:00 Levaquin IV Q24H THEODORE Metronidazole 500 mg in 100 mls @ 100 mls/hr 08/29/20 04:00 08/29/20 05:31 Flagyl IV 100 mls/hr Q6H THEODORE Administration Morphine Sulfate 4 mg 08/28/20 22:24 Morphine Sulfate 4 Mg/Ml Cartridge IVPUSH Q3H PRN Pain, Severe (Pain Scale 7-10) Ondansetron HCl 4 mg 08/28/20 22:24 Ondansetron Hcl 4 Mg/2 Ml Vial IVPUSH Q8H PRN Nausea and Vomiting Sodium Chloride 3 ml 08/29/20 00:00 08/29/20 00:55 0.9 % Sodium Chloride Flush 3 Ml Syringe IVFLUSH 3 ml QSHIFT THEODORE Administration Temazepam 15 mg 08/28/20 22:24 Temazepam 15 Mg Capsule PO BEDTIME PRN Insomnia Home Medications Medication Instructions Recorded Confirmed Last Taken Type calcium carbonate-vitamin D3 1 tab PO DAILY 08/28/20 08/28/20 08/26/20 History [Calcium + D] dorzolamide-timolol (PF) [Cosopt 1 drp OPHTHALMIC (EYE) BID 08/28/20 08/28/20 08/27/20 History (PF)] multivitamin 1 tab PO DAILY 08/28/20 08/28/20 08/26/20 History Physical Exam Vital Signs: Vital Signs: Last Vital Signs Temp 98.3 F 08/29/20 01:06 Pulse 85 08/29/20 01:06 Resp 16 08/29/20 01:06 BP 110/62 08/29/20 01:06 Pulse Ox 96 08/29/20 01:06 Body Mass Index 26.4 Const: General: cooperative, comfortable and well developed Nutritional Appearance: well nourished Orientation/consciousness: patient oriented x3 Eyes: Sclerae: sclerae normal EOM: EOMs intact bilaterally Neck: Neck: Yes normal visual inspection Resp: Effort & Inspection: normal respiratory effort, no cough, no respiratory distress and no stridor Cardio: Jugular venous distension: no JVD GI: Inspection: Yes normal to inspection Palpation (GI): Soft to palpation, Tenderness to palpation present (GI) in the LLQ and in the RLQ, no guarding and not rigid Skin: General skin exam: dry skin Rashes: no rashes Neuro: General: patient oriented x3 and no focal motor deficits Extrem: General: Yes full ROM and Yes no clubbing, cyanosis or edema Psych: Appearance: grossly normal Results Results Labs: Short CBC 08/28/20 Range/Units 17:55 WBC 15.4 H (4.8-10.8) X10*3/uL Hgb 12.4 (12.0-16.0) g/dl Hct 38.2 (37-47) % Plt Count 189 (160-400) X10*3/uL BMP 08/28/20 17:55 Sodium 137 Potassium 3.6 Chloride 99 Carbon Dioxide 30 H BUN 10 Creatinine 0.59 Calcium 8.6 Liver Function 08/28/20 Range/Units 17:55 Total Bilirubin 0.7 (0.0-1.0) mg/dL Direct Bilirubin 0.4 (0.0-0.5) mg/dL AST 54 H (5-31) U/L ALT 56 H (0-31) U/L Alkaline Phosphatase 82 (39-117) U/L Albumin 3.7 (3.5-5.0) g/dL Urine 08/28/20 Range/Units 19:26 Urine Color YELLOW Urine Appearance CLEAR Urine pH 6.5 (5.0-8.0) Ur Specific [place] <= 1.005 (1.005-1.025) Urine Protein NEG (NEG-TRACE) MG/DL Urine Glucose (UA) NEG (NEG) MG/DL Assessment and Plan (1) Acute appendicitis: Qualifiers: Acute appendicitis type: with localized peritonitis Appendicitis abscess presence: without abscess Appendicitis gangrene presence: without gangrene Appendicitis perforation presence: without perforation Qualified Code(s): K35.30 - Acute appendicitis with localized peritonitis, without perforation or gangrene Status: Acute 70-year-old female patient returning to the ER with increased abdominal pain in the right lower quadrant and left lower quadrant. Workup revealed findings consistent with acute appendicitis as well as an elevated WBC. Examination is consistent with acute appendicitis now. I recommended a laparoscopic or possible open appendectomy. After discussion of the procedure, risks, and alternatives, she consents to the surgery. She will be added onto the operative schedule for today.
--- NOTE | 2020-08-29 07:48 | PC.NURSE ---
pt states small bm x 1 (diarrhea) this am.
--- NOTE | 2020-08-29 08:12 | PC.NURSE ---
pt requested pain medication for 10/10 abdominal pain and then changed her mind when the pain med (Morphine 4mg) was brought to her room, was reminded that she can request the pain med again if needed before surgery. Report given to Stefania in short stay surgery, expected tack picker time is 1100 for SSS. pt aware of plan of care.
[2020-08-29] MEDS: Morphine Sulfate 4 MG/ML CARTRIDGE IVPUSH (08:49)
--- NOTE | 2020-08-29 08:59 | PC.NURSE ---
Pt changed her mind again and requested morphine for 01/06 LRQ pain. 4mg morphine given IV push.
--- NOTE | 2020-08-29 10:39 | P.CONAN_ITS ---
[facility] Active Problems Active Problems: All Active Problems (Updated 08/28/20 @ 19:31 by Monica brandon MD) Acute appendicitis (Acute) Past Medical History Medical History (Updated 08/29/20 @ 11:21 by Coco Jones RN) Asthma Bunion of great toe of left foot Carpal tunnel syndrome of right wrist Cataract Social History Social History Alcohol intake: never Smoking Status: Never smoker Use of substances other than those prescribed or required for medical reasons: No Advance Directives: No Advance Directives Information Provided: No service: Yes Current occupational status: retired Meds Allergies Allergy/AdvReac Type Severity Reaction Status Date / Time amoxicillin Allergy Intermediate Hives Verified 08/26/20 08:47 Active Medications: Current Medications Generic Name Dose Route Start Last Admin Trade Name Freq PRN Reason Stop Dose Admin Acetaminophen 650 mg 08/28/20 22:24 08/28/20 22:28 Acetaminophen 325 Mg Tablet PO 650 mg Q6H PRN Administration Pain, Mild (Pain Scale 1-3) Dextrose/Lactated Ringer's 1,000 mls @ 125 mls/hr 08/28/20 22:24 08/29/20 08:55 D5lr IVCONT Infused .Q8H THEODORE Infusion Levofloxacin 500 mg in 100 mls @ 100 mls/hr 08/29/20 19:00 Levaquin IV Q24H THEODORE Metronidazole 500 mg in 100 mls @ 100 mls/hr 08/29/20 04:00 08/29/20 06:31 Flagyl IV Infused Q6H THEODORE Infusion Morphine Sulfate 4 mg 08/28/20 22:24 08/29/20 08:49 Morphine Sulfate 4 Mg/Ml Cartridge IVPUSH 4 mg Q3H PRN Administration Pain, Severe (Pain Scale 7-10) Ondansetron HCl 4 mg 08/28/20 22:24 Ondansetron Hcl 4 Mg/2 Ml Vial IVPUSH Q8H PRN Nausea and Vomiting Sodium Chloride 3 ml 08/29/20 00:00 08/29/20 09:54 0.9 % Sodium Chloride Flush 3 Ml Syringe IVFLUSH 3 ml QSHIFT THEODORE Administration Temazepam 15 mg 08/28/20 22:24 Temazepam 15 Mg Capsule PO BEDTIME PRN Insomnia Home Medications Medication Instructions Recorded Confirmed Last Taken Type calcium carbonate-vitamin D3 1 tab PO DAILY 08/28/20 08/28/20 08/26/20 History [Calcium + D] dorzolamide-timolol (PF) [Cosopt 1 drp OPHTHALMIC (EYE) BID 08/28/20 08/28/20 08/27/20 History (PF)] multivitamin 1 tab PO DAILY 08/28/20 08/28/20 08/26/20 History Exam Exam Date and Time: August 29, 2020 1039 Height,Weight and Vital Signs: Height 5 ft 1 in Weight 63.503 kg Last Vital Signs Temp 98.5 F 08/29/20 07:45 Pulse 90 08/29/20 07:45 Resp 16 08/29/20 08:49 BP 125/60 08/29/20 07:45 Pulse Ox 97 08/29/20 07:45 Pertinent Lab Results Pertinent Lab Results: Laboratory Tests 08/28/20 08/28/20 08/28/20 17:55 17:55 17:55 WBC 15.4 H RBC 4.08 L Hgb 12.4 Hct 38.2 MCV 93.6 MCH 30.4 MCHC 32.5 RDW 13.1 Plt Count 189 MPV 9.9 Immature Gran % (Auto) 0.5 H Neut % (Auto) 83.1 H Lymph % (Auto) 9.8 L [place] % (Auto) 6.2 Eos % (Auto) 0.2 Baso % (Auto) 0.2 Lymph # (Auto) 1.5 [place] # (Auto) 1.0 Eos # (Auto) 0.0 Baso # (Auto) 0.0 Abs Immat Gran (auto) 0.07 H Absolute Neuts (auto) 12.8 H Absolute Nucleated RBC 0.000 Nucleated RBC % (auto) 0.0 Sodium 137 Potassium 3.6 Chloride 99 Carbon Dioxide 30 H Anion Gap 12 BUN 10 Creatinine 0.59 Estim Creat Clear Calc 76.8 Estimated GFR > 60 Random Glucose 95 Lactic Acid 0.9 Calcium 8.6 Total Bilirubin 0.7 Direct Bilirubin 0.4 AST 54 H ALT 56 H Alkaline Phosphatase 82 Total Protein 6.6 Albumin 3.7 Lipase < 4 L Urine Color Urine Appearance Urine pH Ur Specific [place] Urine Protein Urine Glucose (UA) Urine Ketones Urine Blood Urine Nitrite Ur Leukocyte Esterase Urine RBC Urine WBC Ur Squamous Epith Cells Urine Bacteria COVID-19 (EMILIANA) COVID-19 Clin Com 08/28/20 08/28/20 19:26 19:50 WBC RBC Hgb Hct MCV MCH MCHC RDW Plt Count MPV Immature Gran % (Auto) Neut % (Auto) Lymph % (Auto) [place] % (Auto) Eos % (Auto) Baso % (Auto) Lymph # (Auto) [place] # (Auto) Eos # (Auto) Baso # (Auto) Abs Immat Gran (auto) Absolute Neuts (auto) Absolute Nucleated RBC Nucleated RBC % (auto) Sodium Potassium Chloride Carbon Dioxide Anion Gap BUN Creatinine Estim Creat Clear Calc Estimated GFR Random Glucose Lactic Acid Calcium Total Bilirubin Direct Bilirubin AST ALT Alkaline Phosphatase Total Protein Albumin Lipase Urine Color YELLOW Urine Appearance CLEAR Urine pH 6.5 Ur Specific [place] <= 1.005 Urine Protein NEG Urine Glucose (UA) NEG Urine Ketones 15 Urine Blood TRACE Urine Nitrite NEG Ur Leukocyte Esterase NEG Urine RBC 0-2 Urine WBC 0 Ur Squamous Epith Cells TRACE Urine Bacteria TRACE COVID-19 (EMILIANA) Negative COVID-19 Clin Com See Note Airway Mallampati Class: II TM Dist: >3cm Neck ROM: Full Assessment and Plan Assessment Anesthesia Assessment: Anesthesia Plan Discussed and Chart Reviewed Final Anesthetic Review NPO: Yes ASA Class: II Final Preanesthetic Review: No Changes in Pt Med Stat, Meds/Allgs Chart Reviewed, Consent Obtained/Reviewed and Anes Risks/Benef Reviewed Patient Risk: Low Procedure Risk: Low Assessment/Block/Sedation in SS: Assess/Block/Sedation-SS Anesthetic Plan Anesthetic Plan: GA Disposition: Standard PACU
[2020-08-29] MEDS: Lactated Ringers 1,000 ML 20 ML IVCONT (11:11)
--- NOTE | 2020-08-29 11:13 | PC.NURSE ---
pt from [facility] to [facility] for surgery. came over with a #20 iv right a/c area red/bruised sore, infiltrated with d5L/r. iv removed. new # 20 left hand. LR infusing without any difficulty at this time. pt resting quietly
--- NOTE | 2020-08-29 13:37 | W.PM.OPN ---
Operative Note Operative Note Date of Service: 08/29/20 Narrative: Preoperative diagnosis: Acute appendicitis Postoperative diagnosis: Same Procedure: Laparoscopic appendectomy Surgeon: Shaan Cooper MD Regulatory Product Manager:none Anesthesia: General endotracheal Indications for procedure: 70-year-old female presenting with complaints of abdominal pain in the lower abdomen with a known history of a fecalith at the base of the appendix. Patient was initially trialed with oral antibiotics without much improvement and now presents for laparoscopic appendectomy. Operative findings: Acute appendicitis located deep within the pelvis. Specimen: Appendix Estimated blood loss: 30 mL Complications: None Procedure details: Patient was brought to the OR and placed in a supine position. After administering general anesthesia the patient's abdomen was prepped with ChloraPrep and draped in a sterile fashion. A surgical time-out was called and consent confirmed. Patient received preoperative antibiotics and Venodyne boots were in place. Local anesthesia consisting of 0.75% Sensorcaine with epinephrine was infiltrated in periumbilical region. A 5 mm incision was made below the umbilicus and carried down through subcutaneous tissue. A Veress needle was then inserted while elevating abdominal cavity with towel clips. After a positive drop test the abdomen was insufflated to a pressure of 15 mm of mercury. The Veress needle was removed and a 5 mm trocar inserted. The camera was then inserted in the abdomen explored. A 2nd 5 mm trocars placed in the lower midline. A 12 mm trocar was then placed in the left lower quadrant. The patient was then placed in a Trendelenburg position and rotated to the left. The appendix was identified in the right lower quadrant, deep within the pelvis and brought up using blunt dissecting clamps. The mesentery of the appendix was then divided using the LigaSure. The appendiceal artery was cauterized and divided using the LigaSure. Dissection was continued down to the base of the cecum. An Endo-KIRSTIN stapler with a purple reload was then used to divide the appendix at the base with the cecum. The appendix was then placed in Endo-Catch bag and brought out through the left lower quadrant incision. The abdomen was then irrigated with 2 L saline solution and suctioned dry. Wounds were checked for hemostasis. CO2 was then evacuated from the abdominal cavity and all trocars removed. Skin was closed at all incisions using a subcuticular 4-0 Polysorb suture. Steri-Strips 2 x 2 gauze and Tegaderm were then applied. The patient tolerated the procedure well. Sponge, instrument, needle counts reported as correct. The patient was transferred to PACU in stable condition.
[2020-08-29] MEDS: Albuterol Sulfate 90 MCG 8 GM INHALER 2 PUFF INHALE (14:01)
[2020-08-29] MEDS: Acetaminophen 325 MG TABLET 650 MG PO ×2 (14:05→23:46)
[2020-08-29] MEDS: oxyCODONE HCl Immed Release 5 MG TABLET PO (14:13)
[2020-08-29] MEDS: levoFLOXacin/D5W 500 MG/100 ML PIGGYBACK 100 MG IV (19:32)
--- NOTE | 2020-08-29 20:40 | PC.NURSE ---
During the Levoquin infusion patient reported severe stinging to the lt forearm also redness . Antibiotic was stopped , pt tolerated 54 ml from 100 ml bag. Pt denied sob, no itching .Dr Concepcion and pharmacy was notified. Per DR Jamey cantu Levoqiun, no other new antibiotic needed at time
[2020-08-30] VITALS: RESP 16
[2020-08-30] MEDS: Dextrose 5 % and Lactated Ring 1,000 ML 125 ML IVCONT (05:46)
[2020-08-30] MEDS: Acetaminophen 325 MG TABLET 650 MG PO (07:44)
[2020-08-30 08:00] VITALS: BP 115/60; PULSE 77; RESP 17; TEMP 36.8; O2SAT 96
--- NOTE | 2020-08-30 10:30 | HO.POSTANES ---
Post Anesthesia Evaluation Post Anesthesia Evaluation Vital Signs: Vital Signs Temp Pulse Resp BP Pulse Ox 08/30/20 08:00 98.2 F 77 17 115/60 96 08/30/20 00:00 16 08/29/20 23:54 96.4 F L 79 16 122/68 94 Anesthesia: General Mental Status: Awake Pain Control: Satisfactory Nausea/Vomiting: None Hydration: Adequate Anesthesia-Related Issues: No Anes. Related Issues
--- NOTE | 2020-08-30 12:25 | MHC.CM.PN ---
PATIENT IS DISCHARGED HOME - SELF CARE. SPOUSE TO TRANSPORT. RN AWARE OF THE PLAN.
--- NOTE | 2020-08-30 12:44 | PM.PNGS ---
Subjective Subjective Date of Service: 08/30/20 Interval history: She feels well. She reports no significant pain. She is tolerating solid food and feels ready to go home. Had burning and slight erythema in left forearm at the time of Levaquin infusion last night. No systemic symptoms, no rash. Physical Exam Vital Signs: Vital Signs: Last Vital Signs Temp 98.2 F 08/30/20 08:00 Pulse 77 08/30/20 08:00 Resp 17 08/30/20 08:00 BP 115/60 08/30/20 08:00 Pulse Ox 96 08/30/20 08:00 Body Mass Index 26.4 Const: Other: Alert, appears comfortable and in no distress. GI: Other: Soft, nondistended, dressings intact with slight staining on in the local dressing Extrem: Other: Tender venous cord extending from right antecubital fossa cephalad, approximately 4 cm in length Progress Note: A&P Assessment and plan (1) Acute appendicitis: Status: Acute Assessment and Plan: She is doing well postoperative day 1 following laparoscopic appendectomy. She had a reaction to her Levaquin infusion last night. It is unclear whether this was a true allergic reaction. She had been on p.o. Levaquin without difficulty. We discussed this and the possibility of allergy testing down the road, but reviewed that Levaquin and similar antibiotics should be considered an allergy until testing is done. She has a short area of phlebitis in the right antecubital region likely related to IV placement or phlebotomy. She will call if she has any worsening. She feels ready for discharge today. She will follow up with Dr. Cooper in the office. We discussed routine postoperative care. Fall Risk Details Current Medications: Current Medications Generic Name Dose Route Start Last Admin Trade Name Freq PRN Reason Stop Dose Admin Acetaminophen 650 mg 08/28/20 22:24 08/30/20 07:44 Acetaminophen 325 Mg Tablet PO 650 mg Q6H PRN Administration Pain, Mild (Pain Scale 1-3) Dextrose/Lactated Ringer's 1,000 mls @ 125 mls/hr 08/28/20 22:24 08/30/20 05:46 D5lr IVCONT 125 mls/hr .Q8H THEODORE Administration Morphine Sulfate 4 mg 08/28/20 22:24 08/29/20 08:49 Morphine Sulfate 4 Mg/Ml Cartridge IVPUSH 4 mg Q3H PRN Administration Pain, Severe (Pain Scale 7-10) Non-Formulary Medication 1 drop 08/29/20 21:00 Dorzolamide-Timolol (Pf) [Cosopt (Pf)] EYE-BOTH BID THEODORE Ondansetron HCl 4 mg 08/28/20 22:24 Ondansetron Hcl 4 Mg/2 Ml Vial IVPUSH Q8H PRN Nausea and Vomiting Oxycodone HCl 5 mg 08/29/20 16:39 Oxycodone Hcl Immed Release 5 Mg Tablet PO Q6H PRN Pain, Moderate (Pain Scale 4-6 Sodium Chloride 3 ml 08/29/20 00:00 08/30/20 07:44 0.9 % Sodium Chloride Flush 3 Ml Syringe IVFLUSH Not Given QSHIFT THEODORE Temazepam 15 mg 08/28/20 22:24 Temazepam 15 Mg Capsule PO BEDTIME PRN Insomnia Time Spent With Patient Time: Total time spent is greater than 50% in coordination of care (as documented) at patient's floor/unit and/or counseling patient: Time with patient: less than 15 minutes
--- NOTE | 2020-08-30 13:10 | P.DS_ITS ---
DS: Providers Provider Date of Service: 08/30/20 Date of admission: 08/28/20 19:36 Date of discharge: 08/30/20 Primary care physician: Lupe Fernandez MD Admitting clinician: Shaan Cooper Attending physician on discharge: Shaan Cooper DS: Diagnosis Discharge Diagnosis (1) Acute appendicitis: Status: Acute DS: Medications Discharge Medications Home Medications: Home Medications Medication Instructions Recorded Confirmed calcium carbonate-vitamin D3 1 tab PO DAILY 08/28/20 08/28/20 dorzolamide-timolol (PF) [Cosopt 1 drp OPHTHALMIC (EYE) BID 08/28/20 08/28/20 (PF)] multivitamin 1 tab PO DAILY 08/28/20 08/28/20 Previous Rx's Medication Instructions Recorded tramadol 50 mg PO BID PRN #10 tab 08/26/20 DS: Summary Hospital Course Hospital Course: 70-year-old female patient presenting to the emergency department for evaluation of abdominal pain which began at approximately 01:00 this morning, waking her up from sleep. The pain was initially in the epigastric region then felt in they bilateral lower abdomen. She felt that she was constipated and has subsequently had 3 bowel movements which did improve the pain to some degree but however she still feels some discomfort in the lower abdomen. She denied fever or chills, nausea, vomiting, or anorexia. She denies pain with motion/walking. She denies a previous history of similar discomfort. She subsequently presented to the emergency department and underwent evaluation for acute appendicitis. She was initially treated with oral antibiotics and discharged to home however 2 days later the pain persisted and actually increased in severity and she re-presented to the emergency department. Repeat WBC revealed an elevated white blood cell count and CT of the abdomen was more consistent with acute appendicitis with a fecalith. She subsequently was admitted to the surgical service and preparation made for laparoscopic appendectomy. She was taken to the OR on 08/29/2020 for laparoscopic appendectomy. Operative findings were consistent with a markedly inflamed appendix with no abscess or perforation appreciated. The appendix was found deep in the pelvis with dense inflammatory reaction surrounding it. She tolerated the procedure well and was transported to the recovery room. On the 1st postoperative day she tolerated regular diet was comfortable without nausea or vomiting. She did develop reaction possibly to Levaquin and had a reaction to her IV. She felt ready for discharge to home and was subsequently discharged in stable condition. Discharge instructions were to avoid heavy lifting greater than 10 lb for the next 2 weeks. She may resume a regular diet. She should return to the office in approximately 1-2 weeks for follow-up examination. She should call sooner for increased pain in the left arm, nausea, vomiting, fever, chills, or other concerns. Time Spent with Patient Time attestation: Total time spent providing and/or coordinating discharge servi luca: Discharge coordination time: Less than 30 minutes Physical Exam Vital Signs: Vital Signs: Last Vital Signs Temp 98.2 F 08/30/20 08:00 Pulse 77 08/30/20 08:00 Resp 17 08/30/20 08:00 BP 115/60 08/30/20 08:00 Pulse Ox 96 08/30/20 08:00 Body Mass Index 26.4 Const: General: cooperative, healthy appearing, comfortable, no acute distress and well developed GI: Inspection: Yes normal to inspection Palpation (GI): Soft to palpation, nontender, no guarding and not rigid Extrem: Other: Tender venous cord extending from right antecubital fossa cephalad, approximately 4 cm in length DS: Data Data Completed and Pending Pending studies at discharge: Pending at discharge 08/29/20 13:05 Surgical [PTH] Routine Labs on day of discharge: Preliminary micro results at discharge 08/28/20 17:55 Blood Culture - Preliminary Blood - Venous No growth after 48 hours. 08/28/20 17:55 Blood Culture - Preliminary Blood - Venous No growth after 48 hours. Discharge Plan Discharge Patient Disposition: Home, Self-Care Referrals: Shaan Cooper MD [Physician] - 1 Week Lupe Fernandez MD [Primary Care Provider] - Discharge Medications: Continued dorzolamide-timolol (PF) [Cosopt (PF)] 2-0.5 % dropperette 1 drp ophthalmic (eye) BID RF: 0 multivitamin Tablet 1 tab PO DAILY RF: 0 calcium carbonate-vitamin D3 600 mg(1,500mg) -200 unit Tablet 1 tab PO DAILY RF: 0 tramadol 50 mg tablet 50 mg PO BID PRN (Reason: pain) Qty: 10 RF: 0 Discontinued levofloxacin 500 mg tablet 500 mg PO DAILY Qty: 7 RF: 0 metronidazole [Flagyl] 500 mg tablet 500 mg PO BID Qty: 14 RF: 0 Discharge Orders: Discharge Order (Routine); Ordered 08/30/20 Ordered By: Jigna Concepcion Diet: advance to usual diet Activity on Discharge: No heavy lifting Stand Alone Forms: Patient Portal Discharge page Activity Restrictions/Additional Instructions: If the incision area is tender, you may apply an ice pack for short intervals (No more than 20 minutes on, followed by at least 20 minutes off). Do not apply heat. Do not use creams, lotions, or topical antibiotics unless instructed to do so by your surgeon. These can cause infection or allergic reaction. Ok to shower. If you have meet closing your incision, these will be removed approximately 10-14 days after surgery. Call Your Doctor If: -Your temperature exceeds 101.5? F -You experience excessive pain or swelling -You have an unexpected reaction to medication -You have excessive bleeding -You experience continued vomiting/nausea -Your incision begins to separate -Your incision shows signs of infection such as increased redness, swelling, excessive pain, drainage (light blood or clear fluid is normal) or heat Care Plan Goals: Return to normal diet and normal activity Health Concerns: acute appendicitis Plan of Treatment: Laparoscopic appendectomy Patient Instructions: Laparoscopic Appendectomy (DC) Discharge Date/Time: 08/30/20 13:35
== END 2020-08-30 13:35 | disposition home or self-care (01) | DRG 342 ==
LOC: HO.ED 19:31 → HO.EDOVER 20:43 → HO.S3 08-29 16:30
PROVIDERS: Surgery; Admitting Provider Hospitalist; Emergency Provider Emergency Medicine; PCP Internal Medicine; Visit Provider Hospitalist
PROC: 0DTJ4ZZ Resection of Appendix, Percutaneous Endoscopic Approach (ICD-10-PCS; CPT 44970; principal; 2020-08-29 12:50)
DX: K35.80 Unspecified acute appendicitis (principal); T80.1XXA Vascular complications following infusion, transfusion and therapeutic injection, initial encounter; I80.8 Phlebitis and thrombophlebitis of other sites; Z20.822 Contact with and (suspected) exposure to COVID-19; Z88.0 Allergy status to penicillin; Z79.899 Other long term (current) drug therapy
CPT/HCPCS: 36415; 74177; 80048; 80076; 81001; 83605; 83690; 85025; 87040; 87635; 88304; 93005; 96365; 96368; 96375; 99024; 99284; 99285; J1100; J1885; J1956; J2270; J2405; J2765; J3010; Q9967

== ENCOUNTER → 2020-09-09 08:56 | Outpatient (BNVA) | payer OTHER, SELFPAY | PROVIDERS: PCP Internal Medicine; Visit Provider Surgery | DX: K35.30 Acute appendicitis with localized peritonitis, without perforation or gangrene (principal) | CPT/HCPCS: 99212 ==

== ENCOUNTER → 2021-02-09 11:20 | Outpatient (BNVA) | payer OTHER, SELFPAY | PROVIDERS: PCP Internal Medicine; Referring Provider Internal Medicine; Visit Provider Surgery | DX: Z12.11 Encounter for screening for malignant neoplasm of colon (principal) | CPT/HCPCS: 99202 ==

== ENCOUNTER 2021-02-23 06:35 | Outpatient (REF) | payer OTHER, SELFPAY ==
[2021-02-23 08:13] LABS: Blood Urea Nitrogen 12 mg/dL (9-16); Estimated Glomerular Filt Rate > 60
== END 2021-02-23 06:36 | disposition home or self-care (01) ==
LOC: HO.LAB 06:35
PROVIDERS: PCP Internal Medicine; Visit Provider Otolaryngology
DX: Z01.812 Encounter for preprocedural laboratory examination (principal); R49.0 Dysphonia
CPT/HCPCS: 36415; 82565; 84520

== ENCOUNTER → 2021-03-12 10:24 | Outpatient (BNVA) | payer OTHER, SELFPAY | PROVIDERS: PCP Internal Medicine; Visit Provider Internal Medicine Pulmonary Disease | DX: J45.909 Unspecified asthma, uncomplicated (principal) | CPT/HCPCS: 99202 ==

== ENCOUNTER 2021-03-20 06:26 | Day surgery (SDC) | payer OTHER, SELFPAY ==
[2021-03-16 11:07] VITALS: BMI 24.5
--- NOTE | 2021-03-19 08:55 | P.CONAN_ITS ---
Documented by User: Rhona Norris NP 03/19/21 09:03 HPI - Anesthesia Eval Consult details Narrative: 70yo F for Colonoscopy with Poss Polypectomy s/p lap appy 08/2020 with NOHEMY LLANOS Active Problems Active Problems: All Active Problems (Updated 03/16/21 @ 11:07 by Carrol Watson RN) Asthma (Acute) Colon cancer screening (Acute) Past Medical History Medical History Asthma Bunion of great toe of left foot Carpal tunnel syndrome of right wrist Cataract Colon cancer screening COVID-19 vaccine series completed Family History Family History Paternal Grandmother Leukemia Surgical History Surgical History H/O colonoscopy History of bunionectomy Hx of cataract surgery S/P laparoscopic appendectomy [place] teeth removed Social History Social History Are you a primary career services officer to a significant other at home: No Do you presently have visiting nurse or other home services: No Alcohol intake: never Patient Tobacco Use Status: Former Tobacco user Quit Date: age 30 Tobacco use type: Cigarette Use of substances other than those prescribed or required for medical reasons: No Have you been hit, kicked, punched, or otherwise hurt by someone within the past year? If so, by whom?: No Are you DNR?: No Advance Directives: No (does not have official HCP) Advance Directives Information Provided: Yes (informational brochure mailed) Advance Directives on File: No Recently lost weight without trying: No Eating poorly because of decreased appetite: No Nutrition Risks: No Nutritional Risk Poor oral hygiene: No service: Yes Current occupational status: retired Meds Allergies Allergy/AdvReac Type Severity Reaction Status Date / Time amoxicillin Allergy Intermediate Hives Verified 03/20/21 06:31 levofloxacin AdvReac Intermediate Redness of Verified 03/20/21 06:31 Skin Home Medications Medication Instructions Recorded Confirmed Last Taken Type calcium carbonate 600 mg (1,500 1 tab PO DAILY 08/28/20 03/16/21 08/26/20 History mg)-vitamin D3 200 unit tablet dorzolamide-timolol (PF) 2 %-0.5 % 1 drp OPHTHALMIC (EYE) BID 08/28/20 03/16/21 08/27/20 History eye drops in a dropperette (Cosopt (PF)) multivitamin 1 tab PO DAILY 08/28/20 03/16/21 08/26/20 History albuterol sulfate 0.63 mg/3 mL 0.63 mg INHALATION Q4-6H PRN 03/16/21 03/16/21 Unknown History solution for nebulization albuterol sulfate 90 mcg/actuation 2 puff INHALATION Q4-6H PRN 03/16/21 03/16/21 Unknown History aerosol inhaler (Ventolin HFA) Exam Exam Date and Time: March 19, 2021 0855 Height,Weight and Vital Signs: Height 5 ft 1.5 in Weight 59.874 kg Pertinent Lab Results Pertinent Lab Results: Laboratory Tests 08/28/20 08/28/20 02/23/21 17:55 17:55 06:50 WBC 15.4 H Hgb 12.4 Hct 38.2 Plt Count 189 Sodium 137 Potassium 3.6 Chloride 99 Carbon Dioxide 30 H BUN 12 Creatinine 0.61 Narrative Narrative: EKG 08/2020 Vent. Rate : 088 BPM ? ? Atrial Rate : 088 BPM ?? P-R Int : 160 ms? QRS Dur : 068 ms ? ? QT Int : 362 ms ? ? ? P-R-T Axes : 066 064 046 degrees ?? QTc Int : 438 ms ? Normal sinus rhythm Normal ECG When compared with ECG of 26-AUG-2020 09:05, No significant change was found Assessment and Plan Assessment Anesthesia Assessment: Chart Reviewed Documented by User: Alirio Coello MD 03/20/21 07:10 [facility] Past Medical History Medical History Asthma Bunion of great toe of left foot Carpal tunnel syndrome of right wrist Cataract Colon cancer screening COVID-19 vaccine series completed Family History Family History Paternal Grandmother Leukemia Surgical History Surgical History H/O colonoscopy History of bunionectomy Hx of cataract surgery S/P laparoscopic appendectomy [place] teeth removed Social History Social History Are you a primary career services officer to a significant other at home: No Do you presently have visiting nurse or other home services: No Alcohol intake: never Patient Tobacco Use Status: Former Tobacco user Quit Date: age 30 Tobacco use type: Cigarette Use of substances other than those prescribed or required for medical reasons: No Have you been hit, kicked, punched, or otherwise hurt by someone within the past year? If so, by whom?: No Are you DNR?: No Advance Directives: No (does not have official HCP) Advance Directives Information Provided: Yes (informational brochure mailed) Advance Directives on File: No Recently lost weight without trying: No Eating poorly because of decreased appetite: No Nutrition Risks: No Nutritional Risk Poor oral hygiene: No service: Yes Current occupational status: retired Meds Allergies Allergy/AdvReac Type Severity Reaction Status Date / Time amoxicillin Allergy Intermediate Hives Verified 03/20/21 06:31 levofloxacin AdvReac Intermediate Redness of Verified 03/20/21 06:31 Skin Home Medications Medication Instructions Recorded Confirmed Last Taken Type calcium carbonate 600 mg (1,500 1 tab PO DAILY 08/28/20 03/16/21 08/26/20 History mg)-vitamin D3 200 unit tablet dorzolamide-timolol (PF) 2 %-0.5 % 1 drp OPHTHALMIC (EYE) BID 08/28/20 03/16/21 08/27/20 History eye drops in a dropperette (Cosopt (PF)) multivitamin 1 tab PO DAILY 08/28/20 03/16/21 08/26/20 History albuterol sulfate 0.63 mg/3 mL 0.63 mg INHALATION Q4-6H PRN 03/16/21 03/16/21 Unknown History solution for nebulization albuterol sulfate 90 mcg/actuation 2 puff INHALATION Q4-6H PRN 03/16/21 03/16/21 Unknown History aerosol inhaler (Ventolin HFA) Exam Airway Mallampati Class: II TM Dist: >3cm Neck ROM: Full
[2021-03-20 06:36] VITALS: BP 110/49; PULSE 70; RESP 16; TEMP 36.6; O2SAT 97
[2021-03-20] MEDS: Lactated Ringers 1,000 ML 100 ML IVCONT (06:53)
--- NOTE | 2021-03-20 07:19 | P.HPSUR_ITS ---
Pre-Procedural Eval Section A Date of Service: 03/20/21 Section B Chief Complaint: screening Details of Present Illness: says her last colonoscopy was in 2008 denies GI complaints Relevant Family History (Specify if Yes): No Relevant Social History: None Present Medications: see Short Stay Collaborative assessment Medical History: Significant History (asthma,cataracts) History of Previous Operations: No relevant previous surgery Allergies: Allergies Allergy/AdvReac Type Severity Reaction Status Date / Time amoxicillin Allergy Intermediate Hives Verified 03/20/21 06:31 levofloxacin AdvReac Intermediate Redness of Verified 03/20/21 06:31 Skin Review of Systems Sugical H&P ROS: Negative: Constitution, Cardiovascular, Respiratory, Neurological, Psychiatric, Hem-Onc, Allergic/Immunologic, Gastrointestinal, Genitourinary, Musculoskeletal, Integumentary, Endocrine and Eyes/Ears/Nose/Throat Exam Surgical H&P Exam: Normal: HEENT, Normal: Heart, Normal: Lungs, Normal: Extremi ties, Normal: Abdomen, Normal: Skin and Normal: Neurological Plan Diagnosis/Plan: Unchanged I have reviewed the history and physical and performed a pertinent physical examination on my patient. No changes have occurred unless specified.
--- NOTE | 2021-03-20 08:08 | P.OP_ITS ---
Operative Note Operative Note Date of Service: 03/20/21 Narrative: Preop diagnosis: Colon cancer screening Postop diagnosis: 1. Small polyp about 3 mm, into the level of the hepatic flexure 2. Small polyp, about 3 mm at level 20 cm Procedure: Colonoscopy, with polypectomy using cold forceps x2 Surgeon: Lex Mallory MD Patient is a 70-year-old female referred to me for screening colonoscopy. She apparently had her last colonoscopy in 2008. She understood technique of colonoscopy for screening. She was aware of the risks, benefits, and alternatives. She was brought to the operating placed in left lateral decubitus position under monitored anesthesia care. A surgical time-out was done. A full digital rectal exam was done and there were no palpable incline lesions. The tip of the Olympus colonoscope was gently introduced through the anal orifice advanced with insufflation all the way to cecum. The cecum was intubated. The cecum was identified by visualization of the ileocecal valve as well as the appendiceal orifice. The cecal mucosa was unremarkable. The scope was then gradually withdrawn with careful examination of the entire colonic mucosa being done with scope withdrawal. The patient had good bowel prep so it was unlikely that any lesion may have been missed. At the hepatic flexure, there was note of a small polyp probably about 3 mm in size removed with multiple bites of a cold forceps. We continued to withdraw th e scope with careful examination of the entire colonic mucosa. At level 20 cm, there was note of another small polyp, about 2-3 mm removed using multiple bites of cold forceps as well The rest of the distal rectum and rectal shelf were unremarkable. The anal canal so unremarkable. The scope was then withdrawn completely with desufflation The patient tolerated procedure well. There were no complications noted. Depending on the path report, I would probably recommend another colonoscopy in the next 5-10 years. This will be explained to the patient on her postop visit.
[2021-03-20 08:11] VITALS: BP 91/47; PULSE 72; RESP 14; TEMP 36.7; O2SAT 100
--- NOTE | 2021-03-20 08:11 | P.BOP_ITS ---
Brief Operative Note Date of Service: 03/20/21 Pre-op diagnosis: Colon cancer screen Post-op diagnosis: other (1. Small polyp hepatic flexure 2. Small polyp level 20 cm) Procedure: Colonoscopy with polypectomy x2 using cold forceps Surgeon: Lex Mallory MD Anesthesia: MAC Was an Rotary Veneer Machine Operator used for this Procedure?: No Estimated blood loss (mL): 1 Pathology: other (Polyps x2) Condition: stable Disposition: PACU
[2021-03-20 08:28] VITALS: BP 102/50; PULSE 60; RESP 18; TEMP 36.7; O2SAT 99
== END 2021-03-20 08:55 | disposition home or self-care (01) ==
PROVIDERS: PCP Internal Medicine; Visit Provider Surgery
PROC: 0DBE8ZZ Excision of Large Intestine, Via Natural or Artificial Opening Endoscopic (ICD-10-PCS; CPT 45380; principal; 2021-03-20 07:30)
DX: Z12.11 Encounter for screening for malignant neoplasm of colon (principal); D12.3 Benign neoplasm of transverse colon; K63.5 Polyp of colon; J45.909 Unspecified asthma, uncomplicated; Z79.899 Other long term (current) drug therapy; Z88.0 Allergy status to penicillin; Z88.1 Allergy status to other antibiotic agents; Z87.891 Personal history of nicotine dependence
CPT/HCPCS: 45380; 88305

== ENCOUNTER 2021-03-24 10:04 | Outpatient (REF) | payer OTHER, SELFPAY ==
--- NOTE | 2021-03-24 17:31 | PFT_ITS ---
FLOWS: FEV1 95% of predicted at 2.00 L. FVC 89% of predicted at 2.46 L. FEV1 to FVC ratio of 0.81. No bronchodilator response except in small to medium airways. LUNG VOLUMES: Total lung capacity 99% of predicted at 4.71 L. Residual volume 105% of predicted at 2.19 L. Slow vital capacity 94% of predicted at 2.52 L. Expiratory reserve volume 79% of predicted at 0.19 L. Diffusion capacity is normal. IMPRESSION: No obstructive or restrictive ventilatory defect. No bronchodilator response except in small to medium airways. Dov Pan MD AP/MODL / [id number]
== END 2021-03-24 10:05 | disposition home or self-care (01) ==
LOC: HO.RESP 10:04
PROVIDERS: PCP Internal Medicine; Visit Provider Internal Medicine Pulmonary Disease
DX: J45.909 Unspecified asthma, uncomplicated (principal)
CPT/HCPCS: 94060; 94727; 94729

== ENCOUNTER 2021-04-01 10:53 | Outpatient (REF) | payer OTHER, SELFPAY ==
--- NOTE | ~2021-04-01 | XR_ITS ---
EXAMINATION: XR HIP, BILATERAL XR LUMBAR SPINE INDICATION: Hip and back pain. COMPARISON: No plain films to compare TECHNIQUE: Single view of the pelvis and detailed views of the right and left hip as well as 3 views of the lumbosacral spine AP and lateral. FINDINGS: Single view of the pelvis shows the femoral head contours to be smooth. The SI joints are grossly patent. Mild degenerative changes. Detailed views of the right hip 2 views demonstrates the femoral head contour to be smooth. The joint space is fairly well preserved. Mild irregularity at the labral attachment and mild degeneration along the greater trochanter. Detailed 2 views of the left hip again show some likely degenerative change along the greater trochanter. The femoral head contour is smooth. The joint space is fairly well preserved here. No bony erosion. Three views of the lumbosacral spine demonstrate normal lordosis to be maintained. There is degeneration here, most noted in the posterior elements at L5-S1 and L4-L5 greater than L3-L4. There is no evidence of listhesis or compression injury. No scoliosis. The disc heights show some mild loss of disc height at L3-L4 and L2-L3. No listhesis or compression injury. XR/XR lumbar spine 2-3V IMPRESSION: Some evidence of degenerative changes here, most noted in the posterior elements in lower lumbar spine. Other areas are described above.
--- NOTE | ~2021-04-01 | XR_ITS ---
EXAMINATION: XR HIP, BILATERAL XR LUMBAR SPINE INDICATION: Hip and back pain. COMPARISON: No plain films to compare TECHNIQUE: Single view of the pelvis and detailed views of the right and left hip as well as 3 views of the lumbosacral spine AP and lateral. FINDINGS: Single view of the pelvis shows the femoral head contours to be smooth. The SI joints are grossly patent. Mild degenerative changes. Detailed views of the right hip 2 views demonstrates the femoral head contour to be smooth. The joint space is fairly well preserved. Mild irregularity at the labral attachment and mild degeneration along the greater trochanter. Detailed 2 views of the left hip again show some likely degenerative change along the greater trochanter. The femoral head contour is smooth. The joint space is fairly well preserved here. No bony erosion. Three views of the lumbosacral spine demonstrate normal lordosis to be maintained. There is degeneration here, most noted in the posterior elements at L5-S1 and L4-L5 greater than L3-L4. There is no evidence of listhesis or compression injury. No scoliosis. The disc heights show some mild loss of disc height at L3-L4 and L2-L3. No listhesis or compression injury. XR/XR hips CHERYL min 3V IMPRESSION: Some evidence of degenerative changes here, most noted in the posterior elements in lower lumbar spine. Other areas are described above.
== END 2021-04-01 10:54 | disposition home or self-care (01) ==
LOC: HO.LAB 10:53
PROVIDERS: PCP Internal Medicine; Referring Provider Internal Medicine; Visit Provider Surgery
DX: M54.50 Low back pain, unspecified (principal); M25.551 Pain in right hip; M25.552 Pain in left hip; G89.29 Other chronic pain; M53.3 Sacrococcygeal disorders, not elsewhere classified; D12.6 Benign neoplasm of colon, unspecified
CPT/HCPCS: 72100; 73522

== ENCOUNTER → 2021-04-21 09:49 | Outpatient (BNVA) | payer OTHER, SELFPAY | PROVIDERS: PCP Internal Medicine; Visit Provider Internal Medicine Pulmonary Disease | DX: J45.909 Unspecified asthma, uncomplicated (principal) | CPT/HCPCS: 99212 ==

== ENCOUNTER 2022-02-09 08:35 | Outpatient (REF) | payer OTHER, SELFPAY ==
[2022-02-09 08:59] LABS: COVID-19 Test Positive (Negative)
== END 2022-02-09 08:36 | disposition home or self-care (01) ==
LOC: HO.LAB 08:35
PROVIDERS: Visit Provider Internal Medicine
DX: Z20.822 Contact with and (suspected) exposure to COVID-19 (principal)
CPT/HCPCS: 87635; C9803

== ENCOUNTER 2022-11-22 08:37 | Outpatient (REF) | payer OTHER, SELFPAY ==
--- NOTE | ~2022-11-22 | MM_ITS ---
EXAMINATION: MM SCREENING DIGITAL BREAST TOMOSYNTHESIS, BILATERAL CLINICAL INFORMATION: Screening. Asymptomatic. The lifetime risk of breast cancer based on the Tyrer-Cuzick Model is 4%. COMPARISON: Mammography: 07/08/2020, 06/13/2019, 04/05/2018, 03/14/2017 TECHNIQUE: Digital breast tomosynthesis is performed in both the craniocaudal and mediolateral oblique views along with computer-aided detection (CAD). Synthesized 2D images are generated from the tomosynthesis. FINDINGS: There are scattered areas of fibroglandular density (ACR BI-RADS breast composition Category b). There are no significant masses, abnormal calcifications, or other abnormalities. Parenchymal pattern is similar to prior studies. There is no developing density or architectural abnormality. The axilla and skin contours are unremarkable. No significant changes. MM/MM tomosynthesis screening BI IMPRESSION: No mammographic evidence of malignancy. ASSESSMENT: BI-RADS 1: Negative RECOMMENDATION: Routine annual mammography screening. This patient's information was entered into a reminder system with a target due date for their next mammogram.
== END 2022-11-22 08:38 | disposition home or self-care (01) ==
LOC: HO.MAMMO 08:37
PROVIDERS: Visit Provider Internal Medicine
DX: Z12.31 Encounter for screening mammogram for malignant neoplasm of breast (principal)
CPT/HCPCS: 77063; 77067

== ENCOUNTER 2023-01-29 05:53 | Emergency (ER) | payer OTHER, SELFPAY ==
--- NOTE | ~2023-01-29 | CT_ITS ---
EXAMINATION: CT ANGIOGRAM NECK WITH CONTRAST CT ANGIOGRAM BRAIN WITH CONTRAST CLINICAL INFORMATION: Left arm tingling. Normal strength. COMPARISON: None available. TECHNIQUE: Test bolus sequences followed by intravenous administration 70 mL of Omnipaque 350. Helical imaging was performed in the axial plane from the thoracic inlet to the skull vertex. Delayed postcontrast imaging of the head was also performed. The data was processed at the geospatial technologist workstation for generation of MIP sequences. Angled MIPs and volume rendered reformatted images were also generated at an offline 3D workstation under concurrent supervision. Stenoses are assessed in accordance with NASCET criteria unless otherwise indicated. This CT examination was performed using dose optimization techniques as appropriate, variously including the following: *Automated exposure control *Adjustment of mA and/or kV according to patient size (this includes techniques or standardized protocols for targeted exams where dose is matched to indication/reason for exam; i.e. extremities or head) *Use of iterative reconstruction technique FINDINGS: BRAIN: [There is no intracranial hemorrhage, hydrocephalus, extra-axial surface collection, midline shift, or other herniation pattern. [place] to white matter differentiation is diffusely maintained without evidence of an evolved acute territorial infarct. The basilar cisterns are preserved. No significant soft tissue abnormality. No acute osseous abnormality. The paranasal sinuses and the mastoid air cells are well aerated.] Bilateral ocular staphyloma's. CERVICAL SOFT TISSUES AND LUNG APICES: There is biapical pleural parenchymal scarring. No acute osseous findings. No significant soft tissue findings within the neck. NECK CTA: Left vertebral artery arises from the aortic arch. Proximal arch vessels are non-stenotic. The right vertebral artery is dominant. No significant ostial stenosis is visualized on either side. Both vertebral arteries are widely patent throughout their extracranial cervical course. Both common and internal carotid arteries are normal in course and caliber.] BRAIN CTA: [There is normal opacification of major intracranial arteries. No focal flow-limiting stenosis nor discrete proximal large artery occlusion. No aneurysm. Timing of the contrast bolus allows assessment of the major dural venous sinuses, which all opacify normally] CT/CT angio head neck IMPRESSION: No acute intracranial findings. No acute arterial occlusions and no significant arterial stenoses within the head or neck.
[2023-01-29 05:59] VITALS: BP 117/44; PULSE 78; RESP 18; TEMP 36.6; O2SAT 98; BMI 25.6
--- NOTE | 2023-01-29 06:10 | ECG_ITS ---
Test Reason : NEURO SYMPTOMS Blood Pressure : / mmHG Vent. Rate : 068 BPM Atrial Rate : 068 BPM P-R Int : 158 ms QRS Dur : 068 ms QT Int : 402 ms P-R-T Axes : 043 041 046 degrees QTc Int : 427 ms Normal sinus rhythm Normal ECG When compared with ECG of 28-AUG-2020 18:34, No significant change was found Referred By: Monica Moreno Electronically Signed By:EFRAIN HOWELL
--- NOTE | 2023-01-29 06:11 | ED.NEUROSD ---
HPI - Neuro Symptoms/Deficit General Chief Complaint: Neuro Symptoms/Deficit Stated Complaint: ?Stroke numbness left arm Time Seen by Provider: 01/29/23 06:01 Source: patient Mode of arrival: ambulatory Limitations: no limitations History of Present Illness HPI Narrative: Patient comes to the emergency room complaining of left-sided arm tingling with no loss of function or strength. Patient states that every day she wakes up with numbness and tingling in her left hand due to carpal tunnel. However, this time instead of on leaving her hand, is all the way to the upper arm. Also, patient states that for the last couple of days, she has been experiencing mental fogginess , feels unsteady walking, no lightheadedness, no dizziness, no falls or syncope no chest pain or shortness of breath. Related Data Home Medications Medication Instructions Recorded Confirmed calcium carbonate 600 mg-vitamin 1 tab PO DAILY 08/28/20 04/01/21 D3 5 mcg (200 unit) tablet dorzolamide-timolol (PF) 2 %-0.5 % 1 drp ophthalmic (eye) BID 08/28/20 04/01/21 eye drops in a dropperette (Cosopt (PF)) multivitamin 1 tab PO DAILY 08/28/20 04/01/21 albuterol sulfate 0.63 mg/3 mL 0.63 mg inhalation Q4-6H PRN 03/16/21 04/01/21 solution for nebulization Wheezing albuterol sulfate 90 mcg/actuation 2 puff inhalation Q4-6H PRN 03/16/21 04/01/21 aerosol inhaler (Ventolin HFA) Wheezing Previous Rx's Medication Instructions Recorded tramadol 50 mg tablet 50 mg PO BID PRN pain #10 tabs 08/26/20 sodium,potassium,mag sulfates 17.5 See Rx Instructions PO .COMPLEX 02/09/21 gram-3.13 gram-1.6 gram oral soln #354 mL (Suprep Bowel Prep Kit) Allergies Allergy/AdvReac Type Severity Reaction Status Date / Time amoxicillin Allergy Intermediate Hives Verified 04/21/21 09:52 levofloxacin AdvReac Intermediate Redness of Verified 04/21/21 09:52 Skin Review of Systems Review of Systems: Constitutional : No Weight loss, No Fever, No Chills, No Night Sweats, No Fatigue, No Malaise ENT/Mouth : No Hearing loss, No Ear Pain, No Nasal Congestion, No Sinus Pain, No Hoarseness, No sore throat, No Rhinorrhea, No Swallowing Difficulty Eyes: No Eye Pain, No Swelling, No Redness, No Foreign Body, No Discharge, No Vision Changes Cardiovascular : No Chest Pain, No SOB, No Dyspnea on Exertion, No Orthopnea, No Edema, No Palpitations Respiratory : No Cough, No Sputum, No Wheezing, No Smoke Exposure, No Dyspnea Gastrointestinal : No Nausea, No Vomiting, No Diarrhea, No Constipation, No abdominal Pain, No Hematochezia, No Melena Genitourinary : no irregular bleeding, No Dysuria, No Urinary Frequency, No Hematuria, No Urinary Incontinence, No Urgency, No Flank Pain, No Urinary Flow Changes, No Hesitancy Musculoskeletal : No joint pain, No Myalgias, No Joint Swelling Skin : No Skin Lesions, No rash Neuro : No Weakness, No Numbness, complaining of left arm Paresthesias, No Loss of Consciousness, No Dizziness, No Headache Psych : No Anxiety/Panic, No Depression, No SI/HI/AH/VH, No Social Issues, Heme/Lymph: No Bruising, No Bleeding,No Lymphadenopathy Endocrine : No Polyuria, No Polydipsia, No Temperature Intolerance PMFSH Past Medical History Medical History Asthma Bunion of great toe of left foot Carpal tunnel syndrome of right wrist Cataract Colon cancer screening COVID-19 vaccine series completed Serrated adenoma of colon Surgical History H/O colonoscopy History of bunionectomy History of colonoscopy (~2020) Hx of cataract surgery S/P laparoscopic appendectomy [place] teeth removed Family History Family History Paternal Grandmother Leukemia Social History Social History Are you a primary director long term care to a significant other at home: No Do you presently have visiting nurse or other home services: No Alcohol intake: never Patient Tobacco Use Status: Former Tobacco user Quit Date: age 30 Tobacco use type: Cigarette Smoked in Last 30 Days: No Use of substances other than those prescribed or required for medical reasons: No Advance Directives: No Advance Directives Information Provided: Yes service: Yes Current occupational status: retired Physical Exam Vital Signs: Vital Signs: Last Vital Signs Temp 97.9 F 01/29/23 05:59 Pulse 78 01/29/23 05:59 Resp 18 01/29/23 05:59 BP 117/44 L 01/29/23 05:59 Pulse Ox 98 01/29/23 05:59 O2 Del Method Room Air 01/29/23 05:59 BMI result Body Mass Index 25.6 Const: Other: Appearance: Alert. Oriented X3. No acute distress. Eyes: Pupils equal, round and reactive to light. ENT: Pharynx normal. Neck: Normal inspection. Neck supple. No lymph nodes noted. No crepitus CVS: Normal heart rate and rhythm. Pulses normal. Normal S1 and S2 Respiratory: No respiratory distress. Breath sounds normal. No Wheezing. No rales Abdomen: Soft and nontender. No rigidity. No distention. Skin: Skin warm and dry. Normal skin color. Normal skin turgor. Extremities: No lower extremity edema. No Lacerations. No Rash Neuro: Oriented X 3. No motor deficit. No sensory deficit. Moving all extremities. No slurred speech. CN 2 through 12 grossly intact Psych: calm, cooperative, normal affect Course Course Course Narrative: -patient woke up with the symptoms, last well-known time 8+ hours ago, NIH score 0, patient is not a candidate for tPA -all of patient's labs and CTA pending -patient's vitals pending Medical Decision Making Medical Decision Making [facility] Narrative: -seem intelligent chemistry within normal limits, CT scan of the head and neck pending. -patient's NIH score is 0 -patient likely having paresthesias secondary to carpal tunnel syndrome. I do not suspect stroke. CTA pending. Sign-out given to Dr. Lay Differential Diagnosis Differential Diagnoses: The differential diagnosis associated with the presentation includes (TIA, CVA, paresthesias secondary to carpal tunnel syndrome) Admission/Observation Consideration of admission/observation: Escalation of care including admission/observation considered (TIA has been consider, admission considered) Lab Data [facility] Lab Attestation statement: I reviewed the patient's lab results. 01/29/23 06:15 01/29/23 06:15 Labs: Lab Results 01/29/23 01/29/23 01/29/23 Range/Units 06:15 06:15 06:15 WBC 4.4 L (4.8-10.8) X10*3/uL RBC 4.72 (4.20-5.50) X10*6/uL Hgb 14.2 (12.0-16.0) g/dl Hct 42.1 (37.0-47.0) % MCV 89.2 (80.0-98.0) fL MCH 30.1 (27.0-33.0) pg MCHC 33.7 (31.0-35.0) g/dl RDW 12.9 (11.0-16.0) % Plt Count 225 (160-400) X10*3/uL MPV 9.4 (9.4-12.3) fL Immature Gran % (Auto) 0.2 (0.0-0.4) % Neut % (Auto) 52.8 (45-73) % Lymph % (Auto) 35.6 (20-40) % [place] % (Auto) 8.3 (2-11) % Eos % (Auto) 2.9 (0-4) % Baso % (Auto) 0.2 (0-2) % Lymph # (Auto) 1.6 (1.2-4.9) X10*3/uL [place] # (Auto) 0.4 (0.1-1.2) X10*3/uL Eos # (Auto) 0.1 (0.0-0.4) X10*3/uL Baso # (Auto) 0.0 (0.0-0.2) X10*3/uL Abs Immat Gran (auto) 0.01 (0.00-0.03) X10*3/uL Absolute Neuts (auto) 2.3 (2.0-8.3) x10*3/uL Absolute Nucleated RBC 0.000 (0.0-0.012) X10*3/uL Nucleated RBC % (auto) 0.0 (0.0-0.2) /100WBC PT 11.8 (11.1-13.3) SEC INR 1.0 (0.9-1.1) Sodium 139 (135-145) mmol/L Potassium 3.7 (3.3-5.1) mmol/L Chloride 104 (96-108) mmol/L Carbon Dioxide 23 (22-29) mmol/L Anion Gap 16 (12-20) BUN 17 H (9-16) mg/dL Creatinine 0.59 (0.5-1.4) mg/dL Estim Creat Clear Calc 76.5 Estimated GFR > 60 Random Glucose 90 (60-115) mg/dL Calcium 9.5 D (8.4-10.2) mg/dL Magnesium 2.1 (1.6-2.6) mg/dL Total Bilirubin 0.6 (0.0-1.0) mg/dL Direct Bilirubin 0.2 (0.0-0.5) mg/dL AST 36 H (5-31) U/L ALT 34 H (0-31) U/L Alkaline Phosphatase 61 (39-117) U/L Troponin I High Sens (<3.5-17.0) ng/L Total Protein 7.2 (6.5-8.0) g/dL Albumin 4.2 (3.5-5.0) g/dL Urine Color Urine Appearance Urine pH (5.0-9.0) Ur Specific [place] (1.005-1.025) Urine Protein (Neg-Trace) mg/dL Urine Glucose (UA) (Negative) mg/dL Urine Ketones (Negative) mg/dL Urine Blood (Negative) Urine Nitrite (Negative) Ur Leukocyte Esterase (Negative) Urine RBC (0-2) /HPF Urine WBC (0-5) /HPF Ur Squamous Epith Cells (0-2) /HPF Urine Bacteria (None Seen) Hyaline Casts (0-2) /LPF 01/29/23 01/29/23 Range/Units 06:15 06:50 WBC (4.8-10.8) X10*3/uL RBC (4.20-5.50) X10*6/uL Hgb (12.0-16.0) g/dl Hct (37.0-47.0) % MCV (80.0-98.0) fL MCH (27.0-33.0) pg MCHC (31.0-35.0) g/dl RDW (11.0-16.0) % Plt Count (160-400) X10*3/uL MPV (9.4-12.3) fL Immature Gran % (Auto) (0.0-0.4) % Neut % (Auto) (45-73) % Lymph % (Auto) (20-40) % [place] % (Auto) (2-11) % Eos % (Auto) (0-4) % Baso % (Auto) (0-2) % Lymph # (Auto) (1.2-4.9) X10*3/uL [place] # (Auto) (0.1-1.2) X10*3/uL Eos # (Auto) (0.0-0.4) X10*3/uL Baso # (Auto) (0.0-0.2) X10*3/uL Abs Immat Gran (auto) (0.00-0.03) X10*3/uL Absolute Neuts (auto) (2.0-8.3) x10*3/uL Absolute Nucleated RBC (0.0-0.012) X10*3/uL Nucleated RBC % (auto) (0.0-0.2) /100WBC PT (11.1-13.3) SEC INR (0.9-1.1) Sodium (135-145) mmol/L Potassium (3.3-5.1) mmol/L Chloride (96-108) mmol/L Carbon Dioxide (22-29) mmol/L Anion Gap (12-20) BUN (9-16) mg/dL Creatinine (0.5-1.4) mg/dL Estim Creat Clear Calc Estimated GFR Random Glucose (60-115) mg/dL Calcium (8.4-10.2) mg/dL Magnesium (1.6-2.6) mg/dL Total Bilirubin (0.0-1.0) mg/dL Direct Bilirubin (0.0-0.5) mg/dL AST (5-31) U/L ALT (0-31) U/L Alkaline Phosphatase (39-117) U/L Troponin I High Sens 32.2 H (<3.5-17.0) ng/L Total Protein (6.5-8.0) g/dL Albumin (3.5-5.0) g/dL Urine Color Yellow Urine Appearance Clear Urine pH 5.5 (5.0-9.0) Ur Specific [place] 1.020 (1.005-1.025) Urine Protein Negative (Neg-Trace) mg/dL Urine Glucose (UA) Negative (Negative) mg/dL Urine Ketones 40 (Negative) mg/dL Urine Blood Negative (Negative) Urine Nitrite Negative (Negative) Ur Leukocyte Esterase Trace H (Negative) Urine RBC 0-2 (0-2) /HPF Urine WBC 0-5 (0-5) /HPF Ur Squamous Epith Cells 0-2 (0-2) /HPF Urine Bacteria None Seen (None Seen) Hyaline Casts 0-2 (0-2) /LPF NIH Stroke Scale Internal: Initial- Upon Arrival Level of Consciousness: Alert Level of Consciousness Questions: Answers both questions correctly Level of Consciousness Commands: Performs both tasks correctly Best Gaze: Normal Visual: No visual loss Facial Palsy: Normal Motor Arm (Right): No drift Motor Arm (Left): No drift Motor Leg (Right): No drift Motor Leg (Left): No drift Limb Ataxia: Absent Sensory: Normal Best Language: No aphasia Dysarthia: Normal Extinction and Inattention: No abnormality Score: 0 Critical Care Time Critical Care Time Critical Care Time: Yes Total Critical Care Time: 60 Attestation: I have personally provided critical care time. Time includes review of lab data, radiology results, discussion with consultants, and monitoring for potential decompensation. Intervention performed as documented. Discharge Plan Discharge Clinical Impression: Paresthesia of left arm Patient Disposition: Still a Patient Prescriptions: No Action dorzolamide-timolol (PF) [Cosopt (PF)] 2-0.5 % dropperette 1 drp ophthalmic (eye) BID multivitamin Tablet 1 tab PO DAILY calcium carbonate-vitamin D3 600 mg(1,500mg) -200 unit Tablet 1 tab PO DAILY tramadol 50 mg tablet 50 mg PO BID PRN (Reason: pain) Qty: 10 0RF albuterol sulfate 0.63 mg/3 mL Solution For Nebulization 0.63 mg INHALATION Q4-6H PRN (Reason: Wheezing) albuterol sulfate [Ventolin HFA] 90 mcg/actuation Hfa Aerosol Inhaler 2 puff INHALATION Q4-6H PRN (Reason: Wheezing) Suprep Bowel Prep Kit 17.5-3.13-1.6 gram recon soln See Rx Instructions PO .COMPLEX Qty: 354 0RF Rx Instructions: DILUTE; drink full amount early evening before AND next morning at least 2 hr before procedure; follow w 32 oz. water PO
[2023-01-29 06:19] LABS: MANUAL DIFF FLAG NO
[2023-01-29 06:24] LABS: Basophils Percent Auto 0.2 % (0-2); Eosinophils Absolute Auto 0.1 X10*3/uL (0.0-0.4); Eosinophils Percent Auto 2.9 % (0-4); Hematocrit 42.1 % (37.0-47.0); Hemoglobin 14.2 g/dl (12.0-16.0); Imm Gran Abs Auto 0.01 X10*3/uL (0.00-0.03); Imm Gran Pct Auto 0.2 % (0.0-0.4); Lymphocytes Absolute Auto 1.6 X10*3/uL (1.2-4.9); Lymphocytes Percent Auto 35.6 % (20-40); Mean Corpuscular HGB Conc 33.7 g/dl (31.0-35.0); Mean Corpuscular Hemoglobin 30.1 pg (27.0-33.0); Mean Corpuscular Volume 89.2 fL (80.0-98.0); Mean Platelet Volume 9.4 fL (9.4-12.3); Monocytes Absolute Auto 0.4 X10*3/uL (0.1-1.2); Monocytes Percent Auto 8.3 % (2-11); Neutrophils Absolute Auto 2.3 x10*3/uL (2.0-8.3); Neutrophils Percent Auto 52.8 % (45-73); Platelet Count 225 X10*3/uL (160-400); Red Blood Count 4.72 X10*6/uL (4.20-5.50); Red Cell Distribution Width 12.9 % (11.0-16.0); White Blood Count 4.4 X10*3/uL (4.8-10.8)
[2023-01-29 06:34] LABS: Alanine Aminotransferase 34 U/L (0-31); Albumin Level 4.2 g/dL (3.5-5.0); Alkaline Phosphatase 61 U/L (39-117); Anion Gap 16 (12-20); Aspartate Amino Transferase 36 U/L (5-31); Bilirubin Direct 0.2 mg/dL (0.0-0.5); Bilirubin Total 0.6 mg/dL (0.0-1.0); Blood Urea Nitrogen 17 mg/dL (9-16); Calcium 9.5 mg/dL (8.4-10.2); Carbon Dioxide 23 mmol/L (22-29); Chloride 104 mmol/L (96-108); Creatinine Clr Calc Pharmacy 76.5; Estimated Glomerular Filt Rate > 60; Glucose Random 90 mg/dL (60-115); Magnesium 2.1 mg/dL (1.6-2.6); Potassium 3.7 mmol/L (3.3-5.1); Prothrombin Time 11.8 SEC (11.1-13.3); Sodium 139 mmol/L (135-145); Total Protein 7.2 g/dL (6.5-8.0)
[2023-01-29 06:39] LABS: Troponin-I High Sensitivity 32.2 ng/L (<3.5-17.0)
[2023-01-29 06:57] LABS: Appearance Urine Clear; Color Urine Yellow; Glucose Urine UA Negative (Negative); Leukocyte Esterase Urine Trace (Negative); Nitrite Urine Negative (Negative); PH 5.5 (5.0-9.0); UMIC TRIGGER UACC YES; Urine Blood Negative (Negative); Urine Ketones 40 mg/dL (Negative); Urine Protein Negative (Neg-Trace)
[2023-01-29 07:02] LABS: Bacteria Urine None Seen (None Seen); Hyaline Casts Urine 0-2 /LPF (0-2); RBC Urine 0-2 /HPF (0-2); Squamous Epithelial Cell Urine 0-2 /HPF (0-2); WBC Urine 0-5 /HPF (0-5)
[2023-01-29] MEDS: iohexoL 350 MG/ML 100 ML INFUS..BTL IV (07:22)
[2023-01-29 08:14] VITALS: BP 130/74; PULSE 70; RESP 16; TEMP 36.9; O2SAT 100
[2023-01-29 10:27] LABS: Troponin-I High Sensitivity 30.8 ng/L (<3.5-17.0)
== END 2023-01-29 11:08 | disposition home or self-care (01) ==
PROVIDERS: Emergency Medicine; Emergency Provider Emergency Medicine
DX: R20.2 Paresthesia of skin (principal); Z87.891 Personal history of nicotine dependence; R29.700 NIHSS score 0
CPT/HCPCS: 36415; 70496; 70498; 80048; 80076; 81001; 83735; 84484; 85025; 85610; 93005; 99284; Q9967

== ENCOUNTER 2024-10-12 07:38 | Outpatient (REF) | payer OTHER, SELFPAY | END 2024-10-12 07:39 | disposition home or self-care (01) | LOC: HO.MAMMO 07:38 | PROVIDERS: PCP Physician Assistant; Visit Provider Physician Assistant | DX: Z12.31 Encounter for screening mammogram for malignant neoplasm of breast (principal) | CPT/HCPCS: 77063; 77067 ==

== ENCOUNTER → 2024-10-12 07:45 | Outpatient (BNV) | payer OTHER, SELFPAY | PROVIDERS: PCP Physician Assistant; Visit Provider Internal Medicine | DX: Z12.31 Encounter for screening mammogram for malignant neoplasm of breast (principal) | CPT/HCPCS: 77063; 77067 ==

== ENCOUNTER 2025-04-30 10:19 | Outpatient (AMB) | payer OTHER, SELFPAY ==
--- NOTE | 2025-04-30 10:21 | A.OFFVIS_ITS ---
Vital Signs 04/30/25 10:25 Height 5 ft 2 in Weight 127 lb BMI 23.2 BP 110/55 L Blood Pressure Location Lt brachial Position Sitting Pulse 81 Pulse Oximetry (%) 97 Oxygen Delivery Method Room Air Intake Visit Reasons: constipation Intake Note: Patient new consult for Constipation. Patient have a Colonoscopy with Dr. Mallory 2000. Patient cc: constipation and denies any other GI issues for today vist. 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 Accompanied by: Self / Same As Patient Allergies amoxicillin Allergy (Intermediate, Verified 04/30/25 10:21) Hives levofloxacin Adverse Reaction (Intermediate, Verified 04/30/25 10:21) Redness of Skin Medication List - Last Reconciled 04/30/25 by Claudia Leon CNP albuterol sulfate 0.63 mg inhalation Q4-6H PRN albuterol sulfate 90 mcg/actuation (Ventolin HFA) 2 puffs inhalation Q4-6H PRN dorzolamide-timolol (PF) 2-0.5 % (Cosopt (PF)) 1 drp ophthalmic (eye) BID multivitamin 1 tab PO DAILY HPI HPI constipation: Details: Patient is a 74-year-old female with PMH of asthma, glaucoma, Graves disease. Referred by PCP for further evaluation of constipation. Jigna presents for evaluation of constipation, which began approximately one year ago. She notes that her typical pattern was having a bowel movement twice daily in the morning, but now experiences a sensation of incomplete evacuation, urgency without productive results, and occasional passage of small, hard, pellet-like stools (?rabbit pellet?). She intermittently has relief with flatus followed by a small bowel movement and persists with the sensation of incomplete emptying. Frequency has decreased to once per day, and the consistency is sometimes hard, sometimes normal. She denies straining currently, though she previously did, which led to a pelvic floor evaluation that was unremarkable. Symptoms have improved since starting morning fruit smoothies with yogurt and almond milk about 1.5 months ago, and she also consumes fruit and salads throughout the day. She previously used Metamucil with reported better bowel regularity and is considering resuming it. Miralax was trialed but not effective. She is not currently using a stool softener and is not keen on trying one. No rectal pain, no incontinence, no hemorrhoids, no blood in stool, and no overt abdominal pain. She occasionally experiences a choking sensation and brief coughing episodes with solids, occurring sporadically since her appendectomy (August 2020). Appetite is normal and weight is stable, with a gradual decrease over time but no unexplained weight loss. There is no reported nausea, vomiting, heartburn, or dysphagia with liquids. Relevant comorbidities include Graves disease, previously managed with thyroid medication, currently off thyroid meds with last dose discontinued one month ago per command and control oversight. Surgical history includes appendectomy (August 2020). No known history of anemia in recent labs (per 2022 data). Patient denies: fever/chills, n/v, appetite changes, pyrosis, regurgitation, unintentional wt loss, ab pain or melena/hematochezia. - family hx as below [facility] Medical History (Updated 04/30/25 @ 13:21 by Claudia Leon CNP) Dysphagia Graves disease Change in stool Serrated adenoma of colon COVID-19 vaccine series completed Colon cancer screening Carpal tunnel syndrome of right wrist Bunion of great toe of left foot Cataract Asthma Surgical History History of colonoscopy (~2020) History of bunionectomy H/O colonoscopy S/P laparoscopic appendectomy [place] teeth removed Hx of cataract surgery Family History Paternal Grandmother Leukemia Social History Are you a primary director of medicare to a significant other at home: No Do you presently have visiting nurse or other home services: No Alcohol intake: never Comment: sleeping Patient Tobacco Use Status: Former Tobacco user Tobacco use type: Cigarette service: Yes Current occupational status: retired Review of Systems Const Reports as per HPI ENT Reports as per HPI Card Reports as per HPI Resp Reports as per HPI GI Reports as per HPI Reports as per HPI Physical Exam Vital Signs: Last Vital Signs Pulse 81 04/30/25 10:25 BP 110/55 L 04/30/25 10:25 Pulse Ox 97 04/30/25 10:25 Oxygen Delivery Method Room Air 04/30/25 10:25 BMI result Body Mass Index 23.2 Const General: healthy appearing, no acute distress and well developed Nutritional Appearance: average body habitus Orientation/consciousness: patient oriented x3 HEENT Head: Yes normal to inspection, Yes normocephalic and Yes atraumatic Face and sinus: Yes normal facial exam Eyes General: appearance normal, both eyes and all related structures Neck Neck: Yes normal visual inspection Resp Effort & Inspection: normal respiratory effort, able to speak in complete sent ences, no tracheal deviation and symmetric chest movement Cardio Jugular venous distension: no JVD GI Inspection: Yes normal to inspection and No distended Palpation (GI): Soft to palpation, not firm, nontender and No hepatosplenomegaly present Auscultation: normal bowel sounds Rectal Exam - Female: visual inspection normal, normal sphincter tone, No External hemorrhoid(s) present, No Internal hemorrhoid(s) present, No Rectal prolapse, No fecal impaction, No Lesions present (GI), No Laceration(s) present (GI), No Excoriation present (GI), No mass and No tenderness Neuro General: patient oriented x3 Gait exam (Neuro): Normal gait present Psych Appearance: grossly normal Mental Status: mental status grossly normal Speech and movement: Normal speech and movement present Affect: normal affect Attitude: cooperative Thought process: Normal thought process present Thought content: Normal thought content present Insight: Good insight present (Psych) Judgement: Good judgement present (Psych) Results Reviewed Results Reviewed: Operative Note Date of Service: 03/20/21 Narrative: Preop diagnosis: Colon cancer screening Postop diagnosis: 1. Small polyp about 3 mm, into the level of the hepatic flexure 2. Small polyp, about 3 mm at level 20 cm Procedure: Colonoscopy, with polypectomy using cold forceps x2 Surgeon: Lex Mallory MD Patient is a 70-year-old female referred to de for screening colonoscopy. She apparently had her last colonoscopy in 2008. She understood technique of colonoscopy for screening. She was aware of the risks, benefits, and alternatives. She was brought to the operating placed in left lateral decubitus position under monitored anesthesia care. A surgical time-out was done. A full digital rectal exam was done and there were no palpable incline lesions. The tip of the Sara mpus colonoscope was gently introduced through the anal orifice advanced with insufflation all the way to cecum. The cecum was intubated. The cecum was identified by visualization of the ileocecal valve as well as the appendiceal orifice. The cecal mucosa was unremarkable. The scope was then gradually withdrawn with careful examination of the entire colonic mucosa being done with scope withdrawal. The patient had good bowel prep so it was unlikely that any lesion may have been missed. At the hepatic flexure, there was note of a small polyp probably about 3 mm in size removed with multiple bites of a cold forceps. We continued to withdraw the scope with careful examination of the entire colonic mucosa. At level 20 cm, there was note of another small polyp, about 2-3 mm removed using multiple bites of cold forceps as well The rest of the distal rectum and rectal shelf were unremarkable. The anal canal so unremarkable. The scope was then withdrawn completely with desufflation The patient tolerated procedure well. There were no complications noted. Depending on the path report, I would probably recommend another colonoscopy in the next 5-10 years. This will be explained to the patient on her postop visit. PATHOLOGY: Collected: 03/20/21 Location: [facility] Received: 03/20/21 Diagnosis A. Colon, hepatic flexure, polypectomy: Fragments of sessile serrated polyp. B. Colon, 20 cm, polypectomy: Hyperplastic mucosal polyp. Clinical History Pre-Op Dx: Screening Post-Op Dx: Polyps Assessment & Plan Assessment & Plan (1) Change in stool: Code(s): R19.5 - Other fecal abnormalities Category: Medical Plan: Persistent change in bowel habits >1 year, sensation of incomplete evacuation, altered frequency and consistency, prior pelvic floor and anatomic evaluation unremarkable, improved partially with dietary fiber, possible impact of changing thyroid status. Additional Testing: - Basic labs (CBC, CMP, TSH/free T4, celiac screen, iron studies) - order Colonoscopy routine surveillance due February 2026; reasonable to expedite due to change in bowel habits - Will attempt to obtain outside records from prior pelvic floor evaluation ([place]). Medication Management: - Restart fiber supplement (Metamucil) - Consider OTC stool softener if needed - Continue to avoid laxative overuse; Miralax can be used for colonoscopy prep only - Provide bowel prep regimen: Additional bisacodyl tablets five days pre- colonoscopy + split-dose prep Lifestyle Recommendations: - Maintain and gradually increase dietary fiber (fruits, vegetables, cereals) - Encourage adequate fluid intake?stress hydration - Continue regular physical activity as tolerated - Hold multivitamin with iron two days pre-colonoscopy - Implement low-residue diet two days pre-procedure, standard clear liquid diet day before Follow-Up: - PCP to monitor thyroid status and manage Graves disease - Repeat labs as ordered; review results at follow-up - GI follow-up after colonoscopy or sooner if symptoms worsen or red flags (GI bleeding, weight loss, new abdominal pain) emerge (2) Serrated adenoma of colon: Comment: -03/19/21 colonoscopy complete with good prep- 3 mm SSP (hepatic flexure), 3 mm HP ( at level 20 cm). Repeat 5 years ( 2025) -03/24/09 Colonoscopy complete with excellent prep- Diverticulosis (sigmoid ), internal hemorrhoids. recommendations for repeat in 5 years due to history of TA. Code(s): D12.6 - Benign neoplasm of colon, unspecified Category: Medical Plan: As above (3) Dysphagia: Code(s): R13.10 - Dysphagia, unspecified Category: Medical Qualifiers: Dysphagia type: unspecified Qualified Code(s): R13.10 - Dysphagia, unspecified Plan: Intermittent choking and coughing with solids since surgery; no weight loss, no progressive dysphagia or odynophagia, no aspiration, managed conservatively. Possible non-GI etiology, possibly residual effect of intubation, or dysmotility. Additional Testing: - No immediate GI diagnostic testing indicated without progressive symptoms or red-flag features - Consider speech evaluation or swallow study in future if symptoms worsen or become frequent Medication Management: - None at this time Lifestyle Recommendations: - Small bites, chew food thoroughly, monitor for progression or worsening Follow-Up: - GI to reassess if increase in frequency/severity; otherwise, continue observation Need to be cleaned Plan Follow-up after endoscopy or sooner as needed Time: I spent a total of 45 minutes on the date of encounter which includes: Preparing to see the patient (reviewed previous documentation, test results and medical history) Performing a medically appropriate exam and/or evaluation Ordering medications, tests, and procedures Documenting clinical information in the health record Orders: Orders Transglutaminase IgA Today R19.5 - Other fecal abnormalities Complete Blood Count Auto Diff Today R19.5 - Other fecal abnormalities Comprehensive [place]. Panel Fast Today R19.5 - Other fecal abnormalities IRON PROFILE Today R19.5 - Other fecal abnormalities TSH reflex Free T4 Today E05.00 - Thyrotoxicosis with diffuse goiter without thyrotoxic crisis or storm Referrals GI Procedure Notification D12.6 - Benign neoplasm of colon, unspecified, R19.5 - Other fecal abnormalities, Z12.11 - Encounter for screening for malignant ne oplasm of colon Medications: New bisacodyl take four tablets once day of colonoscopy prep 20 mg (4 x 5 mg) PO ONCE 4 tabs 0RF bisacodyl Take two tablets at bedtime, starting five nights before colonoscopy 10 mg (2 x 5 mg) PO BEDTIME 10 tabs 0RF polyethylene glycol 3350 (Miralax) per colonoscopy prep instructions 238 grams PO ONCE 238 grams 0RF Coding Level of Care Code New Pt New Pt Level 4 (27705) Patient Type New Diagnoses Change in stool R19.5 Serrated adenoma of colon D12.6 Dysphagia, unspecified type R13.10 Dysphagia type: unspecified
[2025-04-30 10:25] VITALS: BP 110/55; PULSE 81; O2SAT 97; BMI 23.2
--- OUTSIDE RECORDS SUMMARY | 2025-04-30 11:46 | XMS_ITS | Data Portability ---
Author Organization [facility] [address] Address [address] [place] [address] Assessment No assessment recorded. Plan of Treatment Reminders Order Date Submit Date Provider Last Modified By Organization Details Last Modified Time Details Appointments None record ed. Lab None record ed. Referral None record ed. Procedures None record ed. Surgeries None record ed. Imaging XR, foot, 3 or more view 023 11/04/19 23 [facility], [address] [facility] [address] [place], [address], 12:36:11 Medication Orders None record ed. Patient TargetsNo targets recorded. Patient Instructions Encounter Date Encounter Id Patient Instructions Last Modified By Organization Details Last Modified Time 11/03/2022 [id number] foot pain: care instructions [email or web address] Not available 11/03/2022 11:30:31 Overview Foot injuries that cause pain and swelling are fairly common. Almost all sports or home repair projects can cause a misstep that ends up as foot pain. Normal wear and tear, especially as you get older, also can cause foot pain. Most minor foot injuries will heal on their own, and home treatment is usually all you need to do. If you have a severe injury, you may need tests and treatment. Follow-up care is a haines part of your treatment and safety. Be sure to make and go to all appointments, and call your doctor or nurse advice line (413 in most provinces and territories) if you are having problems. It's also a good idea to know your test results and keep a list of the medicines you take. How can you care for yourself at home? Take pain medicines exactly as directed. If the doctor gave you a prescription medicine for pain, take it as prescribed. If you are not taking a prescription pain medicine, ask your doctor if you can take an ihzz-ana-xmagjfi medicine. Rest and protect your foot. Take a break from any activity that may cause pain. Put ice or a cold pack on your foot for 10 to 20 minutes at a time. Put a thin cloth between the ice and your skin. Prop up the sore foot on a pillow when you ice it or anytime you sit or lie down during the next 3 days. Try to keep it above the level of your heart. This will help reduce swelling. Your doctor may recommend that you wrap your foot with an elastic bandage. Keep your foot wrapped for as long as your doctor advises. If your doctor recommends crutches, use them as directed. Wear roomy footwear. As soon as pain and swelling end, begin gentle exercises of your foot. Your doctor can tell you which exercises will help. When should you call for help? Call 911 anytime you think you may need emergency care. For example, call if: Your foot turns pale, white, blue, or cold. Call your doctor or nurse advice line now or seek immediate medical care if: You cannot move or stand on your foot. Your foot looks twisted or out of its normal position. Your foot is not stable when you step down. You have signs of infection, such as: Increased pain, swelling, warmth, or redness. Red streaks leading from the sore area. Pus draining from a place on your foot. A fever. Your foot is numb or tingly. Watch closely for changes in your health, and be sure to contact your doctor or nurse advice line if: You do not get better as expected. You have bruises from an injury that last longer than 2 weeks. [email or web address] Not available 11/03/2022 11:30:30 Reason for Referral None Reported. Results Created Date Observation Date Name Description Value Unit Range Abnormal Flag Note LastModifiedBy Organization Detail LastModifiedTime 11/04/19 23 11/03/2022 XR, foot, 3 or more view No observ ation record ed. [email or web address] [facility] [address] [place], [address], 11/03/2022 13:26:12 Result Notes None recorded. Problems No Known Problems Procedures Surgical History Date Name Laterality Status Provider Name and Address Organization Details Recorded Time Appendectomy completed DONNA Zuleta [facility] 11/03/2022 10:50:54 excision of bunion completed DONNA Zuleta [facility] 11/03/2022 10:51:12 extraction of cataract completed DONNA Zuleta [facility] 11/03/2022 10:51:20 Imaging Results None recorded. Procedure Notes None recorded. Medical Equipment None Reported. Allergies Allergen ID Allergen Name Allergen Category Reaction Reaction Severity Criticality Documentation Date Start Date Code Code System Note Provider Name and Address Organization Details Recorded Time 830284 amoxicill in medicatio n Not available Not available Not available 11/03/2022 723 [facility] 3 10:50:24 Medications Name Sig Start Date Stop Date Status Note LastModified by Organization Details LastModified Time ibuprofen 600 mg tablet TAKE 1 TABLET BY MOUTH 3 TIMES A DAY WITH FOOD 11/03 completed Not Available Not Available Not Available neomycin 3.5 mg/g-polymy fabi B 10,000 unit/g-dexa meth 0.1 % eye oint APPLY THIN LAYER TO UPPER EYELID TWICE DAILY 11/03 completed Not Available Not Available Not Available Lubricant Eye Drops 0.5 % drops in a dropperette USE 1 DROPPER IN AFFECTED EYE NEEDED FOR 30 DAYS 11/03 completed Not Available Not Available Not Available Cosopt (PF) 2 %-0.5 % eye drops in a dropperette 11/03 completed Not Available Not Available Not Available Vitals Date Recorded Body height Body mass index (BMI) Body weight Oxygen saturation Heart rate Respiratory rate Body temperature Systolic And Diastolic Provider Name and Address Organization Details Last Updated DateTime 3 157.48 cm 23.8 kg/m2 69566.0 1 g 100 % 71 /min 18 /min 97.6 [degF] 110/71 mm[Hg] DONNA Zuleta [facility] 3 10:53:11 Social History Question Answer Notes LastModified by Organizat ion Details LastModified Time Tobacco Smoking Status Never Smoker [facility] 11/03/2022 10:51:35 Have You Had Direct Contact, Or Contact During Intimacy, With Monkeypox Rash, Scabs, Or Body Fluids From A Person With Monkeypox? No Information not available 11/03/2022 Have You Recently Traveled Abroad? No Information not available 11/03/2022 Are You Currently In School? No Information not available 11/03/2022 Sex: Unknown Functional Status Question Answer Note LastModified by Organizat ion Details LastModified Time Do you use any illicit or recreational drugs? No Information not available 11/03/2022 What is your level of alcohol consumption? Occasional Information not available 11/03/2022 Are you currently employed? No Information not available 11/03/2022 Mental Status None recorded. Family History Relationship Description Onset Age of this Age Resolved Age Notes LastModified by Organization Details LastModified Time Father No current problems or disability Not available 11/2022 10:50:43 Mother No current problems or disability Not available 11/2022 10:50:43 Medical History No medical history recorded. Gynecological HistoryNo gynecological history recorded. Obstetrics History GPAL:G 0 P 0 0 0 0 Immunizations Vaccine Type Date Status Note Provider Nam e and Address Organization Details Recorded Time zoster recombinant 1 completed DONNA padilla PA [facility] 11/03/2022 10:50:00 zoster recombinant 0 completed DONNA padilla [place] - [facility] 11/03/2022 10:50:00 Influenza, high-dose, quadrivalent, PF 2 completed ODNNA padilla PA - [facility] 11/03/2022 10:50:00 Influenza, adjuvanted, quadrivalent, PF 1 completed DONNA padilla PA [facility] 11/03/2022 10:50:00 COVID-19, mRNA, LNP-S, PF, 30 mcg/0.3 mL dose 1 completed DONNA GOODHIND null, PA - [facility] 11/03/2022 10:50:00 COVID-19, mRNA, LNP-S, PF, 30 mcg/0.3 mL dose 1 completed DONNA NAIDUND null, PA - [facility] 11/03/2022 10:50:00 COVID-19, mRNA, LNP-S, PF, 30 mcg/0.3 mL dose 1 completed DONNA NAIDUND null, PA - [facility] 11/03/2022 10:50:00 COVID-19, mRNA, LNP-S, bivalent, PF, 30 mcg/0.3 mL dose 2 completed DONNA MANCUSO null, PA - [facility] 11/03/2022 10:50:00 pneumococcal polysaccharide PPV23 8 completed DONNA MANCUSO null, PA - [facility] 11/03/2022 10:50:01 Tdap 1 completed DONNA MANCUSO null, PA - [facility] 11/03/2022 10:50:01 Pneumococcal conjugate PCV 13 7 completed DONNA MANCUSO null, PA - [facility] 11/03/2022 10:50:01 zoster live 3 completed DONNA MANCUSO null, PA - [facility] 11/03/2022 10:50:01 Influenza, high-dose, trivalent, PF 8 completed DONNA MANCUSO null, PA - [facility] 11/03/2022 10:50:01 Influenza, high-dose, trivalent, PF 9 completed DONNA NAIDUND null, PA - [facility] 11/03/2022 10:50:01 Influenza, split virus, trivalent, preservative 1 completed DONNA MANCUSO null, [place] - [facility] 11/03/2022 10:50:01 Influenza, split virus, trivalent, preservative 2 completed DONNA MANCUSO null, PA - [facility] 11/03/2022 10:50:01 Influenza, split virus, trivalent, preservative 3 completed DONNA MANCUSO null, PA - [facility] 11/03/2022 10:50:01 Influenza, split virus, trivalent, preservative 6 completed DONNA MANCUSO null, PA - [facility] 11/03/2022 10:50:01 Influenza, split virus, trivalent, PF 0 completed DONNA MANCUSO null, PA - [facility] 11/03/2022 10:50:01 Influenza, split virus, trivalent, PF 5 completed DONNA MANCUSO null, [place] - [facility] 11/03/2022 10:50:01 Past Encounters Encounter ID Performer Location Encounter Start Date Encounter Closed Date Diagnosis/Indication Diagnosis SNOMED-CT Code Diagnosis ICD10 Code Diagnosis IMO Codes Diagnosis [place] [id number] [place] [address] [address] 11/03/2022 10:43:09 11/03/2022 12:00:59 Pain in left foot [id number] 49252 M79.672 Health Concerns Section Related Observation LastModified by Organization Detai ls LastModified Time None Recorded Concern Status LastModified by Organization Details LastModified Time None Recorded Advance Directives Directive None Recorded Payers Insurance Date Sequence Insurance Name Policy Number Policy Damon Covered Member ID Damon Member ID Guarantor Name 03/07/2023 1 [facility] (POS) [id number] Jigna Solorzano [id number] Jigna Solorzano Notes Date Note Type Note Provider Name and Address Organization Details Recorded Time 11/04/19 23 text/htm l Foot/Ankle UCReported by PatientHPIFor associated symptoms, patient reportsswellingandrednessbut reportsno weakness,no numbness,no tingling,no warmth, andno ecchymosis. For source of patient information, patient reportsinformation obtained from patient,patient arrived at urgent care ambulatory, andlearning styles: auditory. For location, patient reportsleftandfoot. For problem, patient reportsswelling. For severity, patient reportsmoderate. For duration, patient reports1 days. For context, patient reportsfallandtwisting. For aggravating factors, patient reportsgoing from sit to stand,standing, andwalking. For alleviating factors, patient reportsanalgesics,limited weight bearing,rest, andsitting. For assistive devices, patient reportscrutches. For previous injury, patient reportsno prior injury to affected body part. For previous treatment, patient reportsnone. For prior imaging, patient reportsnone. Scooter Gruber NP [address] [place], [address], [place] - [facility] 11/03/2022 19:58:13 OBGyn Episode No OBEpisode recorded.
--- OUTSIDE RECORDS SUMMARY | 2025-04-30 11:46 | XMS_ITS | Clinical Summary ---
Author Organization [facility] Address [address] [place] [id number] Phone Care Team Providers Care Supervisor [employer] Name Role Phone Lpue Cedillo MD Primary Care Provider [phone] Social History Tobacco Use Types Packs/Day Years Used Date Smoking Tobacco: Never Assessed Education Answer Date Recorded Are you interested in more education? Not on joaquin e 09/24/2022 Are you concerned about learning? Not on file 09/24/2022 No 09/24/2022 No 09/24/2022 Digital Access Answer Date Recorded No 10/23/2022 No 10/23/2022 No 10/23/2022 Reliable internet access at home? Not on file 10/23/2022 Device with a working camera? Not on file Comments Unknown Sex and Gender Information Value Date Recorded Sex Assigned at Not on file Legal Sex Female 11:26 AM EDT Gender Identity Not on file Sexual Orientation Not on file Plan of Treatment Health Maintenance Due Date Last Done Comments DEPRESSION SCREENING 1963 SMOKING Hx and SMOKELESS TOBACCO SCREENING 1964 HEPATITIS C SCREENING 1969 MAMMOGRAM 1991 COLOGUARD 1996 COLONOSCOPY 1996 COLORECTAL CANCER SCREENING 1996 FIT TEST 1996 FOBT 1996 SIGMOIDOSCOPY 1996 VIRTUAL COLONOSCOPY 1996 OSTEOPOROSIS SCREENING INITIAL (ONE-TIME) 2016 Adult Td,Tdap Booster 02/09/2021 02/09/2011 LIPID PANEL 11/17/2023 11/16/2018 INFLUENZA VACCINE (#1) 2024 , 03/27/2019, 03/10/2018, Additional history exists COVID-19 VACCINE (2024- season) 2025 08/07/2020, 07/17/2020 RSV VACCINE (1 - 1-dose 75+ series) 2026 PNEUMOCOCCAL VACCINES (50+ years) Completed 04/25/2018, 12/07/2016 ZOSTER VACCINES Completed 06/30/2020, 07/2019, 07/25/2012 HEPATITIS A VACCINES Aged Out No long er eligible based on patient's age to complete this topic HIB VACCINES Aged Out No longer eligi ble based on patient's age to complete this topic MENINGOCOCCAL VACCINES (ACWY) Aged Out No longer eligible based on patient's age to complete this topic MENINGOCOCCAL VACCINES (B) Aged Out N o longer eligible based on patient's age to complete this topic Medical Devices Not on file Insurance HEALTH PLAN HEALTH PLAN FAMILY HEALTH PLAN FAMILY HEALTH PLAN HEALTH PLAN FAMILY HEALTH PLAN FAMILY HEALTH PLAN HEALTH PLAN [facility] HEALTH PLAN Care Teams Supervisor [employer] Relationship Specialty Start Date End Date Lupe Cedillo MD PCP - General Internal Medicine 12/01/18 Additional Source Comments The information contained in this document represents components of the legal health record. It is not the complete legal health record.[facility]
== END 2025-04-30 11:38 | disposition home or self-care (01) ==
LOC: HO.HGI 10:19
PROVIDERS: PCP Physician Assistant; Visit Provider Nurse Practitioner Family
DX: R19.5 Other fecal abnormalities (principal); D12.6 Benign neoplasm of colon, unspecified; R13.10 Dysphagia, unspecified
CPT/HCPCS: 99204

== ENCOUNTER → 2025-04-30 10:19 | Outpatient (BNVA) | payer OTHER, SELFPAY | PROVIDERS: PCP Physician Assistant; Visit Provider Nurse Practitioner Family | DX: R19.5 Other fecal abnormalities (principal); D12.6 Benign neoplasm of colon, unspecified; R13.10 Dysphagia, unspecified; Z12.11 Encounter for screening for malignant neoplasm of colon | CPT/HCPCS: 99202 ==

== ENCOUNTER 2025-05-20 06:11 | Outpatient (REF) | payer OTHER, SELFPAY ==
--- OUTSIDE RECORDS SUMMARY | 2025-05-20 06:14 | XMS_ITS | Data Portability ---
Author Organization [facility] [address] Address [address] [place] [address] Assessment No assessment recorded. Plan of Treatment Reminders Order Date Submit Date Provider Last Modified By Organization Details Last Modified Time Details Appointments None record ed. Lab None record ed. Referral None record ed. Procedures None record ed. Surgeries None record ed. Imaging XR, foot, 3 or more view 023 11/04/19 23 [facility], [address] [facility] [address] [place], [address], 12:36:11 Medication Orders None record ed. Patient TargetsNo targets recorded. Patient Instructions Encounter Date Encounter Id Patient Instructions Last Modified By Organization Details Last Modified Time 11/03/2022 [id number] foot pain: care instructions [email or web address] Not available [...] call your doctor or nurse advice line (130 in most provinces and territories) if you [...] your doctor if you can take an suhg-ons-kozlwgq medicine. Rest and protect your foot. Take [...] ation record ed. [email or web address] [address] [place], [address], 11/03/2022 13:26:12 Result Notes None recorded. Problems [...] Name and Address Organization Details Recorded Time [id number] amoxicill in medicatio n Not available Not [...] Updated DateTime 3 157.48 cm 23.8 kg/m2 67545.0 1 g 100 % 71 /min 18 [...] 10:50:00 Influenza, high-dose, quadrivalent, PF 2 completed DONNA padilla PA - [facility] 11/03/2022 10:50:00 Influenza, adjuvanted, quadrivalent, PF 1 completed DNONA padilla PA [facility] 11/03/2022 10:50:00 [...] ICD10 Code Diagnosis IMO Codes Diagnosis [place] [id number] [place] [address] [address] 11/03/2022 10:43:09 11/03/2022 12:00:59 Pain in left foot [id number] 06248 M79.672 Health Concerns Section Related Observation LastModified by Organization Detai ls LastModified Time None Recorded Concern Status LastModified by Organization Details LastModified Time None Recorded Advance Directives Directive None Recorded Payers Insurance Date Sequence Insurance Name Policy Number Policy Damon Covered Member ID Damon Member ID Guarantor Name 03/07/2023 1 [facility] FAMILY HEALTH PLAN (POS) [id number] Jigna Solorzano [id number] Jigna Solorzano Notes Date Note Type Note [...] Gruber NP [address] [place], [address], [place] - [facility] 11/03/2022 19:58:13 OBGyn Episode No OBEpisode recorded.
--- OUTSIDE RECORDS SUMMARY | 2025-05-20 06:14 | XMS_ITS | Patient Health Record ---
Author Organization [facility] Address [address] [place] [address] Care Team Providers Care Merchandise Pickup/Receiving Associate Name Role Phone FLASHEZEQUIEL Jacobs Primary Care Provider Maximiliano Centeno [phone] Reason For Referral No Information Plan Of Treatment No Information Insurance Providers Payer Name Payer Address Payer Phone Subscriber Number Group Number Insured Name Patient Relationship to Insured Coverage Start Date Coverage End Date [employer] FAMILY [employer] PLAN (REFERRA L NEEDED) [address] [place] [phone] [id number] VIOLETTE MAC Self - patient is the insured
--- OUTSIDE RECORDS SUMMARY | 2025-05-20 06:14 | XMS_ITS | Clinical Summary ---
Author Organization [facility] Address [address] [facility] [address] [address] [place] [address] Phone Care Team Providers Care Management Assistant Name Role Phone Lupe Cedillo MD Primary Care Provider Social History Tobacco Use Types Packs/Day Years [...] HEALTH PLAN FAMILY HEALTH PLAN HEALTH PLAN [facility] FAMILY HEALTH PLAN Care Teams Management Assistant Relationship Specialty Start Date End Date Lupe Cedillo MD PCP - General Internal Medicine 12/01/18 Additional Source Comments The information contained in this document represents components of the legal health record. It is not the complete legal health record.[facility]
[2025-05-20 06:27] LABS: MANUAL DIFF FLAG NO
[2025-05-20 08:05] LABS: Hematocrit 40.8 % (37.0-47.0); Hemoglobin 12.8 g/dl (12.0-16.0); Imm Gran Abs Auto 0.02 X10*3/uL (0.00-0.03); Imm Gran Pct Auto 0.4 % (0.0-0.4); Lymphocytes Absolute Auto 1.6 X10*3/uL (1.2-4.9); Mean Corpuscular HGB Conc 31.4 g/dl (31.0-35.0); Mean Corpuscular Hemoglobin 31.0 pg (27.0-33.0); Mean Corpuscular Volume 98.8 fL (80.0-98.0); NRBC Abs Auto 0.000 X10*3/uL (0.0-0.012); NRBC Pct Auto 0.0 /100WBC (0.0-0.2); Platelet Count 185 X10*3/uL (160-400); Red Blood Count 4.13 X10*6/uL (4.20-5.50); White Blood Count 4.5 X10*3/uL (4.8-10.8)
[2025-05-20 08:50] LABS: Alanine Aminotransferase 20 U/L (0-31); Albumin Level 3.9 g/dL (3.5-5.0); Alkaline Phosphatase 78 U/L (39-117); Anion Gap 9 (12-20); Aspartate Amino Transferase 29 U/L (5-31); Blood Urea Nitrogen 16 mg/dL (9-16); Calcium 8.9 mg/dL (8.4-10.2); Carbon Dioxide 29 mmol/L (22-29); Chloride 109 mmol/L (96-108); Estimated Glomerular Filt Rate > 60; Iron 117 mcg/dL (30-160); Percent Iron Saturation 45 % (15-50); Potassium 4.1 mmol/L (3.3-5.1); Sodium 143 mmol/L (135-145); Total Iron Binding Capacity 260 mcg/dL (228-428); Total Protein 6.4 g/dL (6.5-8.0); Unsaturated Iron Binding 143 ug/dL
== END 2025-05-20 06:12 | disposition home or self-care (01) ==
LOC: HO.LAB 06:11
PROVIDERS: Visit Provider Nurse Practitioner Family
DX: R19.5 Other fecal abnormalities (principal); E05.00 Thyrotoxicosis with diffuse goiter without thyrotoxic crisis or storm; Z13.0 Encounter for screening for diseases of the blood and blood-forming organs and certain disorders involving the immune mechanism
CPT/HCPCS: 36415; 80053; 83540; 84443; 85025; 86364